=== PATIENT | male | born 1955 | race Two or more races ===

== ENCOUNTER 2019-01-24 17:54 | Emergency (ER) | payer MEDICARE, MEDICAID ==
[~2019-01-24] VITALS: Ht 165.1 cm; Wt 63.6 kg
[~2019-01-24 17:54] MED LIST: CLON-527 PO; CYCL-394 PO; FLO0.4C PO; HYDR1TAB PO; HYDR25SU32 RC; HYDR2TAB28 PO
[2019-01-24] MEDS ORDERED: acetaminophen 325mg tablet PO STA (18:05)
[2019-01-24] MEDS ORDERED: normal saline 1000ML IV soln IV ONE (18:05)
[2019-01-24] MEDS ORDERED: methylPREDNISolone sod succ 125mg/2ml vial IV ONE (18:10)
[2019-01-24] MEDS ORDERED: ipratropium/albuterol 3ml nebule NEB ONE (18:10)
--- NOTE | 2019-01-24 18:28 | NUR ---
pt arrived at change shift [place] GALVEZ at bedside ordered septic work up started iv 20 guage maribell labs RN Ana to assume care of patient. Chest xray complete
--- NOTE | 2019-01-24 18:32 | NUR ---
Pt refused Tylenol stating his told him not to take Tylenol. Pt could not say why MD gave him these instruction. Pt stated he took ASA before coming to the ER for a headach. Temp at this time is 98.0
[2019-01-24] MEDS ORDERED: methylPREDNISolone sod succ 125mg/2ml vial ONE (18:40)
[2019-01-24] MEDS ORDERED: famotidine/PF 10 mg/ml inj IV ONE (18:40)
[2019-01-24 18:41] LABS: BASOPHILS % (AUTO) 0.5 % (0-1); EOSINOPHILS % (AUTO) 0.4 % (0-6); HEMATOCRIT 41.7 % (42.0-52.0); HEMOGLOBIN 14.6 g/dl (14.0-17.9); LYMPHOCYTES # (AUTO) 0.4 X10'3 (1.1-4.8); LYMPHOCYTES % (AUTO) 6.8 % (21-51); MEAN CORPUSCULAR HGB CONC 34.9 g/dL (33.0-36.5); MEAN CORPUSCULAR VOLUME 88.8 FL (78-98); MEAN PLATELET VOLUME 8.3 FL (7.4-10.4); MONOCYTES # (AUTO) 0.4 X10'3 (0-0.9); MONOCYTES % (AUTO) 6.2 % (2-12); NEUTROPHILS # (AUTO) 5.5 X10'3 (1.8-7.7); NEUTROPHILS % (AUTO) 86.1 % (42-75); PLATELET COUNT 152 X10'3 (140-440); RED CELL DISTRIBUTION WIDTH 14.1 % (11.5-14.5); WHITE BLOOD COUNT 6.4 X10'3 (4.5-11.0)
[2019-01-24 18:56] LABS: INR 1.1 INR
[2019-01-24 18:57] LABS: ALANINE AMINOTRANSFERASE 18 U/L (12-78); ALBUMIN 3.7 G/DL (3.4-5.0); ALBUMIN/GLOBULIN RATIO 1.1 (1.1-1.5); ALKALINE PHOSPHATASE 105 IU/L (46-116); ANION GAP 8 (8-16); ASPARTATE AMINO TRANSFERASE 16 U/L (10-37); BILIRUBIN,TOTAL 1.1 MG/DL (0.1-1.0); BLOOD UREA NITROGEN 9 MG/DL (7-18); BUN/CREATININE RATIO 9.4 (5.4-32.0); CALCIUM 8.6 MG/DL (8.5-10.1); CHLORIDE 103 MMOL/L (99-107); CREATININE 0.96 MG/DL (0.60-1.10); GLUCOSE 101 MG/DL (70-104); POTASSIUM 3.5 MMOL/L (3.5-5.1); SODIUM 137 MMOL/L (135-145); TOTAL CARBON DIOXIDE 25.7 MMOL/L (24-32); TOTAL PROTEIN 7.2 G/DL (6.4-8.2); eGFR 79 ML/MIN
[2019-01-24] MEDS ORDERED: PRED20TA PO (19:41)
[2019-01-24] MEDS ORDERED: GUAI120015 PO (19:41)
[2019-01-24] MEDS ORDERED: ALBU6.7H INH (19:41)
[2019-01-24] MEDS ORDERED: AMOX-419 PO (19:41)
[2019-01-24 20:13] LABS: CLARITY,URINE CLEAR (Clear); COLOR,URINE YELLOW (Yellow); GLUCOSE, URINE NEGATIVE (Neg); KETONES,URINE NEGATIVE (Neg); LEUKOCYTE ESTERASE ,URINE NEGATIVE (Neg); NITRITES, URINE NEGATIVE (Neg); OCCULT BLOOD,URINE NEGATIVE (Neg); PROTEIN,URINE NEGATIVE (Neg); UROBILINOGEN,URINE 0.2 E.U/dL (0.2-1.0)
[2019-01-24 20:17] LABS: UA COLLECTION TYPE VOIDED
[2019-01-24 20:19] VITALS: BP 149/75
[2019-01-24 20:30] LABS: URINE AMPHETAMINE SCREEN NEGATIVE (Neg); URINE BARBITUATE SCREEN NEGATIVE (Neg); URINE BENZODIAZEPINES SCREEN NEGATIVE (Neg); URINE CANNABINOID SCREEN POSITIVE (Neg); URINE COCAINE SCREEN NEGATIVE (Neg); URINE METHADONE SCREEN NEGATIVE (Neg); URINE OPIATE SCREEN POSITIVE (Neg); URINE PHENCYCLIDINE SCREEN NEGATIVE (Neg)
[2019-01-27] MEDS ORDERED: OMEP10CA4 PO (10:06)
[2019-01-27] MEDS ORDERED: CLON-371 PO (10:06)
[2019-01-27] MEDS ORDERED: HYDR-4353 PO (10:06)
[2019-01-27] MEDS ORDERED: OXYC20TA71 PO (10:06)
[2019-01-27] MEDS ORDERED: PREG150C PO (10:06)
[2019-01-27] MEDS ORDERED: DEXT15SY8 (10:07)
== END 2019-01-24 20:38 | disposition home or self-care (01) ==
LOC: ER 17:55
DX: J18.1 Lobar pneumonia, unspecified organism (principal); J44.1 Chronic obstructive pulmonary disease with (acute) exacerbation; K21.9 Gastro-esophageal reflux disease without esophagitis; G89.29 Other chronic pain; F12.90 Cannabis use, unspecified, uncomplicated; R79.1 Abnormal coagulation profile; Z85.46 Personal history of malignant neoplasm of prostate; Z88.5 Allergy status to narcotic agent; Z79.899 Other long term (current) drug therapy
CPT/HCPCS: 36415; 71045; 80053; 80305; 81003; 83605; 84145; 85025; 85610; 87040; 93005; 94640; 94760; 96374; 96375; 99284; J2930; J3490; J7030

== ENCOUNTER 2019-02-12 17:02 | Emergency (ER) | payer MEDICARE, MEDICAID ==
[~2019-02-12] VITALS: Ht 165.1 cm; Wt 202.3 kg
[~2019-02-12 17:02] MED LIST changes: +ALBU6.7H INH; +CLON-371 PO; -CLON-527 PO; -CYCL-394 PO; +GUAI120015 PO; +HYDR-4353 PO; -HYDR1TAB PO; -HYDR25SU32 RC; -HYDR2TAB28 PO; +LEVO500T89 PO; +OMEP10CA5 PO; +OXYC20TA71 PO; +PRED10TA23 PO; +PREG150C PO
[2019-02-12 17:05] VITALS: BP 136/79
[2019-02-12] MEDS ORDERED: CEPH-572 PO (18:16)
== END 2019-02-12 18:56 | disposition home or self-care (01) ==
LOC: ER 17:03
DX: L03.012 Cellulitis of left finger (principal); J44.9 Chronic obstructive pulmonary disease, unspecified; K21.9 Gastro-esophageal reflux disease without esophagitis; G89.29 Other chronic pain; F12.90 Cannabis use, unspecified, uncomplicated; Z88.5 Allergy status to narcotic agent; Z79.899 Other long term (current) drug therapy
CPT/HCPCS: 99284

== ENCOUNTER 2019-09-29 13:53 | Emergency (ER) | payer MEDICARE, MEDICAID ==
[~2019-09-29] VITALS: Ht 165.1 cm; Wt 65.0 kg
[~2019-09-29 13:53] MED LIST changes: -ALBU6.7H INH; +ALBU6.7H9 INH; -LEVO500T89 PO; -PRED10TA23 PO
[2019-09-29 14:09] VITALS: BP 152/81
[2019-09-29] MEDS ORDERED: LIDOcaine 5% patch TP STA (14:29)
== END 2019-09-29 15:36 | disposition home or self-care (01) ==
LOC: ER 13:55
DX: S22.31XA Fracture of one rib, right side, initial encounter for closed fracture (principal); J44.9 Chronic obstructive pulmonary disease, unspecified; K21.9 Gastro-esophageal reflux disease without esophagitis; G89.29 Other chronic pain; F12.90 Cannabis use, unspecified, uncomplicated; Z88.5 Allergy status to narcotic agent; Z79.899 Other long term (current) drug therapy; W10.9XXA Fall (on) (from) unspecified stairs and steps, initial encounter; Y93.89 Activity, other specified; Y92.89 Other specified places as the place of occurrence of the external cause; Y99.9 Unspecified external cause status
CPT/HCPCS: 71101; 99284

== ENCOUNTER 2021-08-31 11:54 | Emergency (ER) | payer MEDICARE, MEDICAID ==
[~2021-08-31] VITALS: Ht 165.1 cm; Wt 65.9 kg
[~2021-08-31 11:54] MED LIST changes: -OXYC20TA71 PO; +OXYC20TA78 PO
[2021-08-31 13:05] LABS: BASOPHILS % (AUTO) 0.8 % (0-1); EOSINOPHILS # (AUTO) 0.1 X10'3 (0-0.9); EOSINOPHILS % (AUTO) 2.3 % (0-6); HEMATOCRIT 40.1 % (42.0-52.0); HEMOGLOBIN 13.7 g/dl (14.0-17.9); LYMPHOCYTES # (AUTO) 1.4 X10'3 (1.1-4.8); MEAN CORPUSCULAR HEMOGLOBIN 30.4 PG (27.0-31.0); MEAN CORPUSCULAR HGB CONC 34.1 g/dL (33.0-36.5); MONOCYTES # (AUTO) 0.4 X10'3 (0-0.9); MONOCYTES % (AUTO) 8.2 % (2-12); NEUTROPHILS # (AUTO) 2.9 X10'3 (1.8-7.7); NEUTROPHILS % (AUTO) 59.7 % (42-75); PLATELET COUNT 174 X10'3 (140-440); RED BLOOD COUNT 4.51 X10'6 (4.70-6.10); RED CELL DISTRIBUTION WIDTH 13.6 % (11.5-14.5); WHITE BLOOD COUNT 4.8 X10'3 (4.5-11.0)
[2021-08-31] MEDS ORDERED: HYDROcodone/acetaminophen 5mg/325mg tablet PO ONE (13:15)
[2021-08-31 13:16] LABS: ALANINE AMINOTRANSFERASE 15 U/L (12-78); ALBUMIN 3.7 G/DL (3.4-5.0); ALBUMIN/GLOBULIN RATIO 1.2 (1.1-1.5); ALKALINE PHOSPHATASE 81 IU/L (46-116); ANION GAP 12 (8-16); ASPARTATE AMINO TRANSFERASE 4 U/L (10-37); BILIRUBIN,TOTAL 0.3 MG/DL (0.1-1.0); BLOOD UREA NITROGEN 21 MG/DL (7-18); BUN/CREATININE RATIO 19.8 (5.4-32.0); CHLORIDE 105 MMOL/L (99-107); CREATININE 1.06 MG/DL (0.60-1.10); GLUCOSE 103 MG/DL (70-104); POTASSIUM 4.2 MMOL/L (3.5-5.1); SODIUM 142 MMOL/L (135-145); TOTAL CARBON DIOXIDE 25.4 MMOL/L (24-32); TOTAL PROTEIN 6.7 G/DL (6.4-8.2); eGFR 70 ML/MIN
[2021-08-31] MEDS ORDERED: aspirin 325mg tablet PO ONE (13:25)
[2021-08-31] MEDS ORDERED: iohexol 350MG/ML 100ml bottle IV ONE (15:54)
--- NOTE | 2021-08-31 16:13 | NUR ---
TO CT SCAN .
--- NOTE | 2021-08-31 18:41 | NUR ---
assumed care of patient. blanket provided. arelietn states pain is within acceptable limits - awaiting second troponin and will DC per MD order when ready
[2021-08-31 19:18] VITALS: BP 120/70
== END 2021-08-31 19:29 | disposition home or self-care (01) ==
LOC: ER 11:55
DX: R07.2 Precordial pain (principal); R20.2 Paresthesia of skin; J44.9 Chronic obstructive pulmonary disease, unspecified; K21.9 Gastro-esophageal reflux disease without esophagitis; G89.29 Other chronic pain; N40.0 Benign prostatic hyperplasia without lower urinary tract symptoms; F12.90 Cannabis use, unspecified, uncomplicated; Z87.01 Personal history of pneumonia (recurrent); Z79.899 Other long term (current) drug therapy; Z88.5 Allergy status to narcotic agent
CPT/HCPCS: 36415; 71045; 71275; 74174; 80053; 83880; 84484; 85025; 93005; 99285; Q9967

== ENCOUNTER 2022-01-21 14:13 | Emergency (ER) | payer MEDICARE, MEDICAID ==
[~2022-01-21] VITALS: Ht 165.1 cm; Wt 65.9 kg
[2022-01-21] MEDS ORDERED: ONDA4TAB12 PO (20:12)
[2022-01-21 20:33] VITALS: BP 130/74
--- NOTE | 2022-01-21 20:33 | NUR ---
pt able to tolerate PO fluids.
== END 2022-01-21 20:30 | disposition home or self-care (01) ==
LOC: ER 14:14
DX: B34.9 Viral infection, unspecified (principal); Z20.822 Contact with and (suspected) exposure to COVID-19; R10.84 Generalized abdominal pain; J44.9 Chronic obstructive pulmonary disease, unspecified; K21.9 Gastro-esophageal reflux disease without esophagitis; G89.29 Other chronic pain; F12.90 Cannabis use, unspecified, uncomplicated; Z87.01 Personal history of pneumonia (recurrent); Z88.6 Allergy status to analgesic agent; Z79.899 Other long term (current) drug therapy
CPT/HCPCS: 87502; 87503; 87635; 99284; C9803

== ENCOUNTER 2022-05-14 08:57 | Emergency (ER) | payer MEDICARE, MEDICAID ==
[~2022-05-14] VITALS: Ht 165.1 cm; Wt 68.0 kg
[~2022-05-14 08:57] MED LIST changes: -ALBU6.7H9 INH; +ALBU8.5H17 INH; +DEXA6TAB PO; -GUAI120015 PO; -OMEP10CA5 PO; +OMEP20CA16 PO; +PREG100C55 PO; -PREG150C PO; +TIZA-205 PO
[2022-05-14 10:06] LABS: BASOPHILS % (AUTO) 0.6 % (0-1); EOSINOPHILS # (AUTO) 0.1 X10'3 (0-0.9); EOSINOPHILS % (AUTO) 2.3 % (0-6); HEMOGLOBIN 14.2 g/dl (14.0-17.9); LYMPHOCYTES # (AUTO) 1.4 X10'3 (1.1-4.8); MEAN CORPUSCULAR HEMOGLOBIN 29.6 PG (27.0-31.0); MEAN CORPUSCULAR HGB CONC 33.8 g/dL (33.0-36.5); MEAN CORPUSCULAR VOLUME 87.5 FL (78-98); MEAN PLATELET VOLUME 8.8 FL (7.4-10.4); MONOCYTES # (AUTO) 0.5 X10'3 (0-0.9); NEUTROPHILS # (AUTO) 3.4 X10'3 (1.8-7.7); NEUTROPHILS % (AUTO) 62.1 % (42-75); PLATELET COUNT 183 X10'3 (140-440); RED CELL DISTRIBUTION WIDTH 15.5 % (11.5-14.5); WHITE BLOOD COUNT 5.4 X10'3 (4.5-11.0)
[2022-05-14 10:19] LABS: ALANINE AMINOTRANSFERASE 21 U/L (12-78); ALBUMIN 4.2 G/DL (3.4-5.0); ALBUMIN/GLOBULIN RATIO 1.4 (1.1-1.5); ALKALINE PHOSPHATASE 88 IU/L (46-116); ANION GAP 11 (8-16); ASPARTATE AMINO TRANSFERASE 19 U/L (10-37); BILIRUBIN,TOTAL 0.8 MG/DL (0.1-1.0); BLOOD UREA NITROGEN 15 MG/DL (7-18); BUN/CREATININE RATIO 16.1 (5.4-32.0); CALCIUM 9.2 MG/DL (8.5-10.1); CHLORIDE 107 MMOL/L (99-107); CREATININE 0.93 MG/DL (0.60-1.10); GLUCOSE 97 MG/DL (70-104); POTASSIUM 4.4 MMOL/L (3.5-5.1); SODIUM 143 MMOL/L (135-145); TOTAL PROTEIN 7.2 G/DL (6.4-8.2); eGFR 81 ML/MIN
[2022-05-14 10:21] LABS: LIPASE 84 U/L (73-393)
[2022-05-14 10:36] LABS: CLARITY,URINE CLEAR (Clear); COLOR,URINE YELLOW (Yellow); GLUCOSE, URINE NEGATIVE (Neg); KETONES,URINE NEGATIVE (Neg); LEUKOCYTE ESTERASE ,URINE NEGATIVE (Neg); NITRITES, URINE NEGATIVE (Neg); OCCULT BLOOD,URINE NEGATIVE (Neg); PROTEIN,URINE NEGATIVE (Neg)
[2022-05-14 10:37] LABS: UA COLLECTION TYPE CLN CATCH MIDSTREAM
[2022-05-14] MEDS ORDERED: proCHLORperazine 10mg tablet PO ONE (10:55)
[2022-05-14] MEDS ORDERED: BUDE10.26 INH (11:05)
[2022-05-14] MEDS ORDERED: PROC-8 PO (11:05)
[2022-05-14] MEDS ORDERED: ALBU18HF2 INH (11:05)
[2022-05-14 11:18] VITALS: BP 130/74
== END 2022-05-14 11:25 | disposition home or self-care (01) ==
LOC: ER 08:57
DX: G43.909 Migraine, unspecified, not intractable, without status migrainosus (principal); Z20.822 Contact with and (suspected) exposure to COVID-19; U09.9 Post COVID-19 condition, unspecified; J44.9 Chronic obstructive pulmonary disease, unspecified; K21.9 Gastro-esophageal reflux disease without esophagitis; G89.29 Other chronic pain; M54.9 Dorsalgia, unspecified; F41.9 Anxiety disorder, unspecified; F12.10 Cannabis abuse, uncomplicated; Z88.5 Allergy status to narcotic agent; Z79.899 Other long term (current) drug therapy; Z79.2 Long term (current) use of antibiotics; Z79.1 Long term (current) use of non-steroidal anti-inflammatories (NSAID)
CPT/HCPCS: 36415; 71045; 80053; 81003; 83690; 84484; 85025; 87635; 93005; 99285; C9803; Q0164

== ENCOUNTER 2023-05-26 05:47 | Emergency (ER) | payer MEDICARE, MEDICAID ==
[~2023-05-26] VITALS: Ht 165.1 cm; Wt 6.6 kg
[~2023-05-26 05:47] MED LIST changes: +ALBU18HF2 INH; +BUDE10.26 INH; -OXYC20TA78 PO; +OXYC20TA89 PO; -PREG100C55 PO; +PREG100C56 PO; +PROC-8 PO
[2023-05-26 05:53] VITALS: BP 137/85; PULSE 68; RESP 12; TEMP 98.3; O2SAT 96
[2023-05-26] MEDS ORDERED: ONDA4TAB12 PO (06:57)
[2023-05-26] MEDS ORDERED: ondansetron 4mg rapidly disintigrating tab PO ONE (07:00)
== END 2023-05-26 07:34 | disposition home or self-care (01) ==
LOC: ER 05:48
DX: B34.9 Viral infection, unspecified (principal); Z20.822 Contact with and (suspected) exposure to COVID-19; K21.9 Gastro-esophageal reflux disease without esophagitis; J44.9 Chronic obstructive pulmonary disease, unspecified; G89.29 Other chronic pain; M54.9 Dorsalgia, unspecified; F41.9 Anxiety disorder, unspecified; Z88.5 Allergy status to narcotic agent
CPT/HCPCS: 36415; 87502; 87503; 87811; 99283

== ENCOUNTER 2024-03-04 14:47 | Emergency (ER) | payer MEDICARE, MEDICAID ==
[~2024-03-04] VITALS: Ht 165.1 cm; Wt 61.0 kg
[~2024-03-04 14:47] MED LIST changes: +ONDA4TAB12 PO
[2024-03-04 15:11] VITALS: BP 128/67; PULSE 72; TEMP 98.5; O2SAT 95
[2024-03-04 15:13] VITALS: RESP 14
[2024-03-04 15:41] LABS: BILIRUBIN,URINE NEGATIVE (Neg); CLARITY,URINE CLEAR (Clear); COLOR,URINE YELLOW (Yellow); GLUCOSE, URINE NEGATIVE (Neg); KETONES,URINE NEGATIVE (Neg); LEUKOCYTE ESTERASE ,URINE NEGATIVE (Neg); NITRITES, URINE NEGATIVE (Neg); OCCULT BLOOD,URINE NEGATIVE (Neg); PROTEIN,URINE NEGATIVE (Neg); UA COLLECTION TYPE CLN CATCH MIDSTREAM
[2024-03-04] MEDS: ondansetron 4mg rapidly disintigrating tab PO ONE (15:59)
[2024-03-04 16:12] LABS: BASOPHILS # (AUTO) 0.1 X10'3 (0-0.2); BASOPHILS % (AUTO) 0.9 % (0-1); EOSINOPHILS # (AUTO) 0.2 X10'3 (0-0.9); HEMATOCRIT 40.8 % (42.0-52.0); HEMOGLOBIN 13.6 g/dl (14.0-17.9); LYMPHOCYTES # (AUTO) 1.3 X10'3 (1.1-4.8); MEAN CORPUSCULAR HEMOGLOBIN 30.7 PG (27.0-31.0); MEAN CORPUSCULAR HGB CONC 33.4 g/dL (33.0-36.5); MEAN CORPUSCULAR VOLUME 92.1 FL (78-98); MEAN PLATELET VOLUME 7.6 FL (7.4-10.4); MONOCYTES # (AUTO) 0.3 X10'3 (0-0.9); MONOCYTES % (AUTO) 5.4 % (2-12); NEUTROPHILS # (AUTO) 4.2 X10'3 (1.8-7.7); NEUTROPHILS % (AUTO) 69.7 % (42-75); PLATELET COUNT 309 X10'3 (140-440); RED BLOOD COUNT 4.43 X10'6 (4.70-6.10); RED CELL DISTRIBUTION WIDTH 14.4 % (11.5-14.5)
[2024-03-04 16:28] LABS: ALANINE AMINOTRANSFERASE 31 U/L (12-78); ALBUMIN 3.3 G/DL (3.4-5.0); ALBUMIN/GLOBULIN RATIO 0.9 (1.1-1.5); ALKALINE PHOSPHATASE 90 IU/L (46-116); ANION GAP 6 (8-16); ASPARTATE AMINO TRANSFERASE 17 U/L (10-37); BILIRUBIN,TOTAL 0.5 MG/DL (0.1-1.0); BLOOD UREA NITROGEN 21 MG/DL (7-18); BUN/CREATININE RATIO 21.6 (10.0-20.0); CALCIUM 8.9 MG/DL (8.5-10.1); CHLORIDE 106 MMOL/L (99-107); CREATININE 0.97 MG/DL (0.60-1.10); GLUCOSE 165 MG/DL (70-104); LIPASE 27 U/L (16-77); POTASSIUM 3.9 MMOL/L (3.5-5.1); SODIUM 140 MMOL/L (135-145); TOTAL CARBON DIOXIDE 27.7 MMOL/L (24-32); eCRCL 62 ML/MIN; eGFR 77 ML/MIN
== END 2024-03-04 16:51 | disposition home or self-care (01) ==
LOC: ER 14:47
DX: M54.6 Pain in thoracic spine (principal); J44.9 Chronic obstructive pulmonary disease, unspecified; K21.9 Gastro-esophageal reflux disease without esophagitis; F12.90 Cannabis use, unspecified, uncomplicated; Z88.5 Allergy status to narcotic agent; Z79.899 Other long term (current) drug therapy
CPT/HCPCS: 36415; 74176; 80053; 81003; 83690; 85025; 99284

== ENCOUNTER 2024-05-13 13:38 | Emergency (ER) | payer MEDICARE, MEDICAID ==
[~2024-05-13] VITALS: Ht 165.1 cm; Wt 61.5 kg
[~2024-05-13 13:38] MED LIST changes: +ONDA-243 PO; -ONDA4TAB12 PO
[2024-05-13] MEDS ORDERED: AZIT250T PO (16:25)
[2024-05-13] MEDS ORDERED: PRED20TA PO (16:25)
[2024-05-13 16:40] VITALS: BP 137/83; PULSE 61; RESP 17; TEMP 99.4; O2SAT 95
== END 2024-05-13 16:42 | disposition home or self-care (01) ==
LOC: ER 13:38
DX: U07.1 COVID-19 (principal); J44.9 Chronic obstructive pulmonary disease, unspecified; K21.9 Gastro-esophageal reflux disease without esophagitis; G89.29 Other chronic pain; M54.9 Dorsalgia, unspecified; F41.9 Anxiety disorder, unspecified; F12.90 Cannabis use, unspecified, uncomplicated; Z88.8 Allergy status to other drugs, medicaments and biological substances; Z79.899 Other long term (current) drug therapy; Z79.51 Long term (current) use of inhaled steroids; Z79.891 Long term (current) use of opiate analgesic; Z98.890 Other specified postprocedural states
CPT/HCPCS: 36415; 71045; 87811; 99284

== ENCOUNTER 2025-06-23 15:34 | Inpatient (IN) | payer MEDICARE, MEDICAID ==
[~2025-06-23] VITALS: Ht 172.7 cm; Wt 63.0 kg
[~2025-06-23 15:34] MED LIST changes: +AZIT250T PO; -FLO0.4C PO; +TAMS-55 PO
--- NOTE | 2025-06-23 15:59 | ELECTROCARDIOGRAPH REPORT ---
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 Kane Trinidad Measurements Intervals [place] Rate: 89 P: 58 PA: 158 QRS: -19 QRSD: 98 T: 20 QT: 366 QTc: 446 Interpretive Statements Age not entered, assumed to be 49 years old for purpose of ECG interpretation Sinus rhythm Borderline left axis deviation Low voltage, extremity leads Abnormal R-wave progression, late transition Baseline wander in lead(s) II,III,aVL,aVF,V2,V3,V4,V5 Electronically Signed On 06-29-2025 7:51:[address] Kane Trinidad Please click the below link to view image of tracing.
[2025-06-23 16:01] LABS: MEAN PLATELET VOLUME 7.9 FL (7.4-10.4); RED CELL DISTRIBUTION WIDTH 14.7 % (11.5-14.5)
[2025-06-23 16:23] LABS: CREATININE 0.96 MG/DL (0.60-1.10); PRO BRAIN NATRIURETIC PEPTIDE 32 PG/ML (0-125); TOTAL CARBON DIOXIDE 28.5 MMOL/L (24-32); eCRCL 64 ML/MIN; eGFR 77 ML/MIN
--- NOTE | 2025-06-23 16:52 | RADIOLOGY REPORT ---
CHEST RADIOGRAPH Indication: CP Technique: DI CHEST,SINGLE VIEW Comparison: None FINDINGS: The cardiac silhouette is unremarkable. The lungs demonstrate perihilar and bibasilar airspace opacities. The pulmonary vasculature is prominent. Small left pleural effusion. There is no pneumothorax. IMPRESSION: As above
--- NOTE | 2025-06-23 17:14 | Physician Documentation ---
History of Present Illness ~ Chief Complaint: Syncope Stated Complaint: FALL Time Seen by MD: 15:49 Primary Medical Doctor: Lenin John Source: patient Exam Limitations: no limitations HPI Mr. Zuniga is a 69 y/o male with PMHx significant for COPD and Chronic Pain Syndrome with Neuropathy who presents for evaluation following a syncopal event. He states that this morning at around 0600, he was making his coffee and when he turned to get the sweetner, he passed out. He also reports that he hit his head during the fall. No report of lightheadedness or dizziness prior to the fall. No chest pain/pressure/palpitations during the fall. No SOB or difficulty breathing. No focal weakness. No numbness/tingling/weakness. No loss of bowel or bladder function. No known sick contacts. No recent antibiotic exposure. Medication Reconciliation Allergies: Coded Allergies: morphine (Verified Allergy, Unknown, "HIGH BLOOD PRESSUR, MIGRAINE" PER PT, 05/13/24) Scheduled Albuterol Sulfate (Ventolin Hfa), 2 PUFFS INH Q4HPRN Azithromycin (Zithromax), 1 TAB PO UD Budesonide/Formoterol Fumarate (Budesonide-Formoterol 160-4.5), 1 PUFF INH BID Clonazepam (Clonazepam), 1 TABLET PO HS, (Reported) Dexamethasone (Dexamethasone), 1 TAB PO DAILY Hydrocodone Bit/Acetaminophen ([place] 10-325 Tablet), 1 TAB PO BID PRN PAIN, (Reported) Omeprazole (Omeprazole), 1 CAP PO DAILY, (Reported) Oxycodone HCl (Oxycodone HCl ER), 1 TAB PO Q12H, (Reported) Pregabalin (Pregabalin), 1 CAP PO BID, (Reported) Tamsulosin Hcl* (Flomax*), 2 CAP PO HS, (Reported) Scheduled PRN Albuterol Sulfate (Proair Hfa), 2 PUFFS INH Q6H PRN for wheezing, (Reported) Albuterol Sulfate (Proair Hfa), 2 PUFFS INH Q4HPRN PRN for wheezing ONDANSETRON ODT 4mg tablet (Ondansetron Odt), 1 TABLET PO Q8H PRN for nausea/vomiting Prochlorperazine Maleate (Compazine), 1 TAB PO Q8H PRN for HEADACHE OR NAUSEA Tizanidine Hcl (Zanaflex), 1 TAB PO TID PRN for muscle spasm, (Reported) Past Medical History Past Medical History: COPD, Pneumonia, GERD, BPH, Chronic Back Pain, Anxiety Past Surgical History: no surgical history Other Past Surgical History: hernia Patient History: Breast Ca FH: Alzheimer's disease FH: breast cancer Lyme Alcohol Use: None Drug Use: marijuana Lives In: Home Occupation: disabled Review of Systems All Other Systems at this time: Reviewed and Negative Physical Exam Vital Signs: RN Vital Signs have been reviewed: Yes, Temperature: 99.6, Source: Oral, Heart Rate: 96, Respiratory Rate: 16, BP: 119/81, Pulse Oximetry: 95, Weight: 63.000 Oxygen Flow Rate: 0 Physical Exam GEN: Alert and oriented and in NAD. HEENT: NC/AT. PERRLA. No scleral icterus. MMM. No oral lesions. NECK: Supple. No JVD. CHEST: RRR. No M/G/T. LUNGS: CTA B. No W/R/R. ABD: Soft. NTND. + BS. No rebounding or guarding. BACK: No CVA TTP. EXT: No c/c/e. NEURO: Alert and oriented x 4. Cooperative. Sensorimotor intact x 4 extremities. General Appearance: alert, WD/WN, no apparent distress Progress Results/Orders Reviewed/noted all lab results: Yes Results/Orders Orders - EMILIE HERRERA MD Chest,Single View (06/23/25 15:40) Monitor (06/23/25 15:40) Saline Lock (06/23/25 15:40) Oxygen (06/23/25 15:40) Hs Troponin I W Calculations (06/23/25 17:40) Hs Troponin I W Calculations (06/23/25 18:40) Ct Head (06/23/25 15:50) Completed Orders - EMILIE HERRERA MD Chest,Single View (06/23/25 15:40) Cbc/Diff (06/23/25 15:40) BMP (06/23/25 15:40) PBNP (06/23/25 15:40) Electrocardiogram (06/23/25 15:40) Hs Troponin I W Calculations (06/23/25 15:40) Ct Head (06/23/25 15:50) Vital Signs 06/23/25 15:38 Temp 99.6 Pulse 96 Resp 16 B/P (MAP) 119/81 Pulse Ox 95 O2 Flow Rate 0 Laboratory Tests Test 06/23/25 15:53 White Blood Count 9.0 Red Blood Count 4.65 L Hemoglobin 14.1 Hematocrit 41.1 L Mean Corpuscular Volume 88.4 Mean Corpuscular Hemoglobin 30.3 Mean Corpuscular Hemoglobin Concent 34.2 Red Cell Distribution Width 14.7 H Platelet Count 258 Mean Platelet Volume 7.9 Neutrophils (%) (Auto) 74.4 Lymphocytes (%) (Auto) 13.6 L Monocytes (%) (Auto) 10.5 Eosinophils (%) (Auto) 0.9 Basophils (%) (Auto) 0.6 Neutrophils # (Auto) 6.7 Lymphocytes # (Auto) 1.2 Monocytes # (Auto) 0.9 Eosinophils # (Auto) 0.1 Basophils # (Auto) 0.1 CBC Comment Sodium Level 136 Potassium Level 4.0 Chloride Level 101 Carbon Dioxide Level 28.5 Anion Gap 7 L Blood Urea Nitrogen 12 Creatinine 0.96 Estimated GFR/1.73 m2 77 BUN/Creatinine Ratio 12.5 Glucose Level 111 H Calcium Level 9.1 Troponin I High Sensitivity < 4 L Troponin I High Sens Percent Delta Troponin I Hi Sens Absolute Change Pro-B-Type Natriuretic Peptide 32 Albumin 3.6 Chemistry Comments EKG/XRAY/CT/US/VASC/MRI EKG : Intepreting Monitor?: Yes EKG: NSR EKG Blocks: none [place]: normal Hypertrophy: none Chest X-Ray : Interpreted By: self Views: 1 VIEW Lungs: normal Mediastinum: normal Ribs/Bones: normal Abdomen: normal Impression: no acute disease Medical Decision Making Additional information obtaine: N/A Findings While here in the ED, he remained hemodynamically normal with ABC's intact and in NAD. He is afebrile and nontoxic. Neuro exam nonfocal. No meningismus on exam. I reviewed and interpreted his EKG and it shows NSR with a rate of 89 and is without signs suggestive of acute myocardial injury or ischemia. TnI normal. Lytes are unremarkable. He is without a significant leukocytosis or left shift. Neutrophil predominance. No new oxygen requirement. I reviewed his CXR and it is without radiographic evidence of an acute cardiopulmonary process. Due to the report of a head strike during the fall, a NCCT brain was obtained to further evaluate. CT is without signs of an acute bleed, space-occupying lesions, edema, or large territorial infarct. He has not been seen by a physician in quite some time and would benefit from admission for further work- up of his acute syncopal episode. Differential Dx:Considerations: Include: anemia, CVA, cerebral occlusion, cerebral thrombosis, dehydration, dysrhythmia, electrolyte disorder, encephalopathy, hypoglycemia, hypovolemia, TIA Departure Disposition: ADMITTED INPATIENT Admitted to Inpatient Unit: yes, to hospitalist Admission Level of Care: Med/Surg with Tele Impression: Primary Impression: Syncope Condition: Stable Discharge Instructions: Syncope, Adult Referrals: NO PRIMARY CARE PROVIDER (PCP) Education Educated: Patient Educated regarding: diagnosis, treatment ACF Form Admit Criteria Met or Not Met: YES Signature Scribe Signature: N/A Attestation: N/A EMILIE HERRERA MD Jun 23, 2025 17:14
--- NOTE | 2025-06-23 17:18 | RADIOLOGY REPORT ---
Procedure: CT CT HEAD [facility] Study Date and Requested Time: 06/23/2025 04:25 PM History: Syncope Comparison: None Dose: CTDI: 52.51 mGy DLP: 945.09 mGycm Technique: Multiplanar images obtained through the brain without intravenous contrast. Findings: [id number] diffuse brain Atrophy. Mild chronic small vessel ischemic changes. No hemorrhages, masses, mass effect, midline shift, herniation or cytotoxic edema following a large vascular territory. No intra-axial or extra-axial fluid collections. No evidence of hydrocephalus. The basal cisterns are patent. Small lipomas over the left tentorium. The pituitary gland, sella and parasellar regions are unremarkable. The cerebellar tonsils are in normal position. The cerebellum is unremarkable. The orbits and globes are unremarkable. The paranasal sinuses and mastoids are clear. Nonspecific right posterior parietal and left occipital calvarium small lytic lesions measuring up to 4 mm. Metastasis is within the differential. Impression: No evidence of acute intracranial abnormality.
[2025-06-23] MEDS ORDERED: magnesium hydroxide 30ml (MOM) UD suspension PO PRN (17:40)
[2025-06-23] MEDS ORDERED: potassium Cl 20 mEq SR tablet PO PRN ×2 (17:40)
[2025-06-23] MEDS ORDERED: potassium Cl 40MEQ/1/2NS 520ml 520 ML IV PRN (17:40)
[2025-06-23] MEDS ORDERED: magnesium sulf-water 2g/50mL 50 ML IV PRN (17:40)
[2025-06-23] MEDS ORDERED: ondansetron 4mg rapidly disintigrating tab PO PRN (17:40)
[2025-06-23] MEDS ORDERED: magnesium sulf-water 4G/100mL 100 ML IV PRN (17:40)
[2025-06-23] MEDS ORDERED: magnesium Cl slow-release 64mg tablet PO PRN (17:40)
[2025-06-23] MEDS ORDERED: mag hydrox/Alum hydrox/simeth 30ml oral suspension PO PRN (17:40)
--- NOTE | 2025-06-23 17:55 | HISTORY AND PHYSICAL-Residence ---
History & Physical Providers to CC Resident Creating Document: TRIXIEWesleyKEEGAN, RES ~ History of Present Illness Primary Medical Doctor: Lenin John Reason for Admit\\Complaint: syncope History of Present Illness A 69 year old male patient with pmh of CBP and prostate cancer presented to the ED with chief complains of loss of consciousness. Patient stated that it started this morning,prior to losing consciousness prodrome of ear fullness,nausea,vomiting,palpiattions,chills and sweating. As per the patient he lost consciousness for 2 hours and later he experienced confusion for 1 hour. In addition,he also had a fall and hit his head at the posterior skull base. Patient also has h/o chronic cough ass with green sputum,1/2 cup associated with intermitternt fevers. Allergies: Coded Allergies: morphine (Verified Allergy, Unknown, "HIGH BLOOD PRESSUR, MIGRAINE" PER PT, 05/13/24) Home Medications Home Medications Active Zithromax (Azithromycin) 250 Mg Tablet 1 Tab PO UD 5 Days 2 the first day followed by 1 for days 2-5 Ondansetron Odt (Ondansetron HCl) 4 Mg Tab.rapdis 1 Tablet PO Q8H PRN Ventolin Hfa (Albuterol Sulfate) 18 Gm Hfa.aer.ad 2 Puffs INH Q4HPRN Compazine (Prochlorperazine Maleate) 10 Mg Tablet 1 Tab PO Q8H PRN Budesonide-Formoterol 160-4.5 (Budesonide/Formoterol Fumarate) 10.2 Gm Hfa.aer.ad 1 Puff INH BID Proair Hfa (Albuterol Sulfate) 1 Puff Inh 2 Puffs INH Q4HPRN PRN 21 Days Dexamethasone 6 Mg Tablet 1 Tab PO DAILY Reported Proair Hfa (Albuterol Sulfate) 1 Puff Inh 2 Puffs INH Q6H PRN Omeprazole 20 Mg Capsule.dr 1 Cap PO DAILY Zanaflex (Tizanidine Hcl) 4 Mg Tablet 1 Tab PO TID PRN Flomax* (Tamsulosin HCl) 0.4 Mg Cap.sr.24h 2 Cap PO HS Pregabalin 100 Mg Capsule 1 Cap PO BID Oxycodone HCl ER (Oxycodone HCl) 20 Mg Tab.er.12h 1 Tab PO Q12H 30 Days [place] 10-325 Tablet (Acetaminophen/Hydrocodone Bitart) 1 Each Tablet 1 Tab PO BID PRN PAIN 30 Days Clonazepam 1 Mg Tablet 1 Tablet PO HS Past Medical History Past Medical History Chronic back pain Prostate cancer Past Surgical History Surgical History Comment Carpal tunnel repair Hernia repair Family History Family History: Breast Ca FH: Alzheimer's disease FH: breast cancer Lyme Past Social History Social History Comment Patient lives in a trailer with his niece His primary care physician is Dr. John He smokes 2 cigarettes per day since 40 years He occasionally drinks alcohol He smokes marijuana He is able to ambulate without any assistance Occupation retired Smoking: Cigarettes Alcohol Use: None Drug Use: Marijuana Lives In: Home Occupation: disabled ROS All Other Systems: Reviewed and Negative ROS All negative except for pertinent positive symptoms Exam Vitals: Vital Signs Date Time Temp Pulse Resp B/P (MAP) Pulse Ox O2 Delivery O2 Flow Rate FiO2 06/23/25 15:38 99.6 96 16 119/81 95 0 General: GENERAL: Awake, alert, oriented x4 HEENT : Normocephalic, atraumatic, pupils equal and reactive to light, extraocular movements intact, no scleral icterus or conjunctival pallor, nasal mucosa is moist, oral mucosa moist, NECK: neck is supple, trachea midline, no lymphadenopathy, no thyromegaly, no JV distention,lipoma present posterioraly near left scapula RESPIRATORY: Chest expansion equal bilaterally,Bilateral crackles are heard , no wheezes, or rhonchi. No use of accessory muscles, no tenderness on palpation. CARDIOVASCULAR: S1 and S2 heard, no murmurs, no rubs, or gallops ABDOMEN: Soft, nontender, nondistended, bowel sounds present and normoactive. No organomegaly, no palpable mass, no rebound or guarding NEUROLOGICAL: Alert, oriented, normal memory, speech is normal Cranial nerves II-XII- intact Motor strength 5/5 Sensation-intact in all extremities Reflexes +2 and symmetrical Coordination is intact EXTREMITIES: No Edema, peripheral pulses felt, no deformities Psychiatric:Appropriate mood and affect,No hallucinations or suicidal ideation Diagnostic Data Last Recorded Lab Results: 06/23/25 1553 06/23/25 1553 Advance Care Planning Advanced Care plannin - 30 Minutes Additional Plan 69 years old male with past medical history of COPD, BPH, chronic back pain, anxiety he is currently evaluated for transient loss of consciousness Syncopal attack Associated with transient loss of consciousness Patients is currently hemodynamically stable. Head CT was negative for any acute abnormality Orthostatic vitals ordered,initiated on 75ml/hr OF Normal saline Ordered b/l vascular carotid doppler, Ordered Echocardiogram Bilateral community acquired pneumonia covering G+ve and G-ve and anerobic orgranism Chest x-ray reported : perihilar and bibasilar airspace opacities. The pulmonary vasculature is prominent Inflammatory markers negative Initated the patient on fluids Initaited ceftriaxone+azithromycin Continue Albuterol q2h prn,Duonebs q4h scheduled Continue Solumedrol 40mg IV bid Chronic back pain Continue home medications once med rec is done Prostate cancer BED BUGS infestation Benadryl 25mg po pnr Hydrocortsione 1% cream as needed Code status: DNR Diet: Regaular Diet DVT: SCDs Disposition: F/u with echo,carotid doppler Keegan Dunaway PGY-1 Date of Service: Jun 23, 2025 Billing Provider: SHITAL KEANE MD, SATISH, RES Jun 23, 2025 17:54
[2025-06-23 18:18] LABS: ETHANOL < 10 MG/DL (<10)
[2025-06-23] MEDS ORDERED: albuterol 2.5 MG/3 ML nebule NEB PRN (18:20)
[2025-06-23] MEDS: ipratropium/albuterol 3ml nebule NEB SCH (19:00)
[2025-06-23] MEDS: K and/or MAG REPLACEMENT MC SCH (19:01)
[2025-06-23] MEDS: docusate sod 100mg capsule PO SCH (19:02)
[2025-06-23 19:04] VITALS: PULSE 93; RESP 16; O2SAT 98
[2025-06-23] MEDS: hydrocortisone 1% OINTMENT 30gm tube TP SCH (19:10)
[2025-06-23 19:15] VITALS: PULSE 91; RESP 16
[2025-06-23] MEDS: CefTRIAXone/D5W-Rocephin 1gm 50 ML IV SCH (19:21)
[2025-06-23] MEDS: ondansetron/PF 4mg/2ml inj IV PRN (19:24)
[2025-06-23] MEDS: methylPREDNISolone sod succ/PF 40mg inj. IV SCH (19:24)
[2025-06-23] MEDS: azithromycin/NS 500mg/250ml 250 ML IV SCH (19:26)
[2025-06-23 19:38] LABS: LEUKOCYTE ESTERASE ,URINE NEGATIVE (Neg); NITRITES, URINE NEGATIVE (Neg); OCCULT BLOOD,URINE TRACE-INTACT (Neg)
[2025-06-23 19:44] LABS: UA COLLECTION TYPE NON-SPECIFIED
[2025-06-23 19:45] LABS: MUCUS STRANDS MODERATE /LPF (Neg); SQUAMOUS EPITHELIAL CELL,UR FEW /LPF (FEW)
[2025-06-23 20:00] VITALS: BP_SYST 126; BP_SYST 127; BP_SYST 138; BP_DIAS 79; BP_DIAS 84; BP_DIAS 87; PULSE 91; PULSE 94; PULSE 97; RESP 16; TEMP 98.5; O2SAT 96
[2025-06-23 20:01] LABS: URINE AMPHETAMINE SCREEN NEGATIVE (Neg); URINE BARBITUATE SCREEN NEGATIVE (Neg); URINE BENZODIAZEPINES SCREEN NEGATIVE (Neg); URINE CANNABINOID SCREEN POSITIVE (Neg); URINE COCAINE SCREEN NEGATIVE (Neg); URINE METHADONE SCREEN NEGATIVE (Neg); URINE OPIATE SCREEN POSITIVE (Neg); URINE PHENCYCLIDINE SCREEN NEGATIVE (Neg)
[2025-06-23] MEDS ORDERED: diphenhydrAMINE 2%/zinc acetate cream TP SCH (21:00)
[2025-06-23] MEDS: normal saline 1000ml 1,000 ML IV SCH (21:41)
[2025-06-23 22:00] VITALS: BP 109/78; PULSE 76; RESP 16; TEMP 98; O2SAT 94
[2025-06-24] VITALS (19 sets, daily range): BP systolic 91–127; BP diastolic 53–70; PULSE 70–108; RESP 16–20; TEMP 97.4–97.7; O2SAT 93–98
[2025-06-24 05:39] LABS: MEAN PLATELET VOLUME 8.6 FL (7.4-10.4); RED CELL DISTRIBUTION WIDTH 14.5 % (11.5-14.5)
[2025-06-24 06:04] LABS: CREATININE 1.17 MG/DL (0.60-1.10); TOTAL CARBON DIOXIDE 24.0 MMOL/L (24-32); eCRCL 52 ML/MIN; eGFR 62 ML/MIN
[2025-06-24] MEDS: ringers solution, lacted 1,000 ML IV ONE ×2 (12:05→15:23)
--- NOTE | 2025-06-24 13:06 | VASCULAR REPORT ---
US CAROTID DOPPLER CLINICAL INDICATION: Syncope TECHNIQUE: Multiple grayscale, color Doppler and spectral Doppler ultrasound images were obtained throughout both carotid systems. COMPARISON: None FINDINGS: RIGHT: CCA PSV: 101 cm/s ECA PSV: 111 cm/s ICA PSV: 72 cm/s ICA EDV: 18 cm/s ICA/CCA Ratio: 0.71 Vertebral artery: Patent, antegrade flow. Grayscale images demonstrate no significant plaque or visible stenosis. Spectral analysis demonstrates no hemodynamically significant CCA or ICA stenosis. LEFT: CCA PSV: 109 cm/s ECA PSV: 93 cm/s ICA PSV: 58 cm/s ICA EDV: 16 cm/s ICA/CCA Ratio: 0.62 Vertebral artery: Patent, antegrade flow. Grayscale images demonstrate mild calcified plaque in the common carotid artery extending into the carotid bifurcation and proximal internal carotid artery. no significant plaque or visible stenosis. Spectral analysis demonstrates no hemodynamically significant CCA or ICA stenosis. IMPRESSION: 1. No without evidence of hemodynamically significant CCA or ICA stenosis.
[2025-06-24] MEDS ORDERED: normal saline 500ml IV soln 500 ML IV ONE (14:50)
[2025-06-24] MEDS: FLU VACC TS2025-26(6MOS UP)/PF (FLULAVAL) 45 MCG/0.5 ML SYRINGE IMVAC ONE (15:24)
[2025-06-24] MEDS: ringers solution, lacted 1,000 ML IV SCH (16:50)
--- NOTE | 2025-06-24 17:02 | RADIOLOGY REPORT ---
History: PE, BOWEL ISCHAEMIA Comparison: DI CHEST,SINGLE VIEW on DOS: 06/23/25, DI CHEST,SINGLE VIEW on DOS: 05/13/24, CT CT ABDOMEN PELVIS on DOS: 03/04/24, CHEST,SINGLE VIEW on DOS: 05/14/22, CHEST,SINGLE VIEW on DOS: 03/30/22 TECHNIQUE: Using a slice CT scanner volumetric data acquisition of chest, abdomen and pelvis was obtained following intravenous administration of intravenous 100 ml contrast without any reported adverse effects. Axial images were reconstructed and additional sagittal and coronal images were reformatted. 3D/MIP images were performed and reviewed for reporting. Radiation Dose Information: CT Dose: CTDI volume is 11.2 mGy. Dose-length product is 1083 mGy*cm Findings: Vascular: No evidence of thoracic aortic aneurysm or dissection There is normal caliber of thoracic and abdominal aorta without evidence of aortic dissection, intramural hematoma or aneurysm. Visualized supra-aortic arteries are widely patent without a focal stenosis or aneurysm. The mesenteric, and bilateral renal, iliac and femoral arteries are widely patent without any focal stenosis or aneurysm. Patent SMA. Patent celiac artery. Patent KENIA. Chest: Pulmonary Arteries: There are no filling defects within main pulmonary arteries. There is normal dimensional of main PA. Lungs: There is no peripheral pulmonary infarction, consolidation, pleural effusion, or right heart strain. There is no pneumothorax or pneumomediastinum. Aorta: There is normal caliber of thoracic aorta without evidence of aortic dissection, intramural hematoma or aneurysm. Lymph Nodes: There is no significant intrathoracic or axillary lymphadenopathy on CT size criteria. Lower Neck: Visualized portions of the thyroid gland are unremarkable. Mediastinum: Heart size is normal. There is no pericardial effusion. Musculoskeletal: No aggressive focal bony lesions, acute fractures or dislocation. Chest wall: Unremarkable Abdomen and Pelvis: Liver: The liver is normal in size. No focal lesions. Normal hepatic vascular enhancement. Gallbladder and Biliary Tree: Unremarkable Spleen: Unremarkable Pancreas: The pancreas is normal in appearance without focal lesions or abnormal enhancement. Adrenal Glands: Unremarkable Kidneys: Kidneys demonstrate normal symmetric enhancement without focal lesions, calculi or hydronephrosis. Bladder: Unremarkable Bowel: The stomach is grossly normal in appearance. Small bowel and colon are normal in caliber and distribution. The appendix is not visualized; however, no secondary findings of acute appendicitis identified. Moderate colonic stool burden. Ascites: Absent Lymphadenopathy: No mesenteric, retroperitoneal or periportal lymphadenopathy. Abdominal Wall and Mesentery: Unremarkable. Vasculature: The visualized abdominal aorta is normal in size and caliber. Abdominal and pelvic vessels demonstrate normal enhancement. Pelvic Organs: Prostatomegaly measuring up to 4.7 cm in transverse dimension. Musculoskeletal: No aggressive focal bony lesions, acute fractures or dislocation. IMPRESSION: 1. No evidence of pulmonary embolism. 2. No evidence of acute mesenteric ischemia. 3. No acute findings identified.
[2025-06-24] MEDS: nicotine 14mg patch - 24hr TD SCH (17:29)
[2025-06-24] MEDS ORDERED: levetiracetam inj 750 MG in normal saline 100ml IV soln 100 ML IV SCH (18:45)
[2025-06-24] MEDS: levetiracetam inj 750 MG in normal saline 100ml IV soln 100 ML IV SCH (20:16)
--- NOTE | 2025-06-24 22:29 | PROGRESS NOTE- Residence ---
Progress Note - Resident Providers to CC Resident Creating Document: DIEGO SANTOS RES ~ Antibiotic Timeout Antibiotic Ordered?: Yes Subjective Patient was examined at the bedside in the morning he reports no symptoms, patient had elevated lactic acid the afternoon for that we have given IV fluids, and patient now mentioned he had history of Seizures but he is not currently taking any medication because he lost his neurologist. We started him on levetiracetam IV. Objective Vital Signs Date Time Temp Pulse Resp B/P (MAP) Pulse Ox O2 Delivery O2 Flow Rate FiO2 06/24/25 20:09 97 20 Room Air 0.0 06/24/25 20:00 111/61 (78) 109/68 (82) 125/58 (80) 06/24/25 19:58 96 21 06/24/25 18:00 97.7 Result Diagram: 06/24/2542706/24/25427 GENERAL: Awake, alert, oriented x4 HEENT : Normocephalic, atraumatic, pupils equal and reactive to light, extraocular movements intact, no scleral icterus or conjunctival pallor,, oral mucosa moist, NECK: neck is supple, trachea midline, no lymphadenopathy, no thyromegaly, no JV distention,lipoma present posterioraly near left scapula RESPIRATORY: Chest expansion equal bilaterally, bilateral decrease breath sounds , no wheezes, or rhonchi. No use of accessory muscles, no tenderness on palpation. CARDIOVASCULAR: S1 and S2 heard, no murmurs, no rubs, or gallops ABDOMEN: Soft, nontender, nondistended, bowel sounds present and normoactive. No organomegaly, no palpable mass, no rebound or guarding NEUROLOGICAL: Alert, oriented, normal memory, speech is normal Cranial nerves II-XII- intact Motor strength 5/5 Sensation-intact in all extremities Reflexes +2 and symmetrical Coordination is intact EXTREMITIES: No Edema, peripheral pulses felt, no deformities Psychiatric:Appropriate mood and affect,No hallucinations or suicidal ideation Coagulation Studies Laboratory Tests Test 06/24/25 15:14 D-Dimer 0.88 MG/L FEU (0-0.50) H D-Dimer Comment Advance Care Planning Advanced Care plannin - 30 Minutes Plan Plan 69 years old male with past medical history of COPD, BPH, chronic back pain, anxiety he is currently evaluated for transient loss of consciousness Syncopal attack Associated with transient loss of consciousness Patients is currently hemodynamically stable. Head CT was negative for any acute abnormality CT chest/abdomen/pelvis-no evidence of pulmonary embolus, mesenteric ischemia Carotid ultrasound: No without evidence of hemodynamically significant CCA or ICA stenosis. Orthostatic vitals ordered,initiated on 75ml/hr OF Normal saline Follow up with echocardiogram Bilateral community acquired pneumonia covering G+ve and G-ve and anerobic orgranism Chest x-ray reported : perihilar and bibasilar airspace opacities. The pulmonary vasculature is prominent Inflammatory markers negative Continue the patient on fluids Continue ceftriaxone+azithromycin Continue Albuterol q2h prn,Duonebs q4h scheduled Continue Solumedrol 40mg IV bid Follow up with blood culture, sputum culture History of Seizures Today patient mentioned he has a history of Seizures and he do not remember the medication but he stopped taking after he lost his neurologist His lactic acid was elevated and we have given IV fluid bolus and increase ringer lactate 100 mL per Started levetiracetam 750 mg IV q.12h Follow up with EEG Chronic back pain Continue home medications Prostate cancer Follow up with outpatient oncologist BED BUGS infestation Benadryl 25mg po pnr Hydrocortsione 1% cream as needed Code status: DNR Diet: Regaular Diet DVT: SCDs Disposition: Patient will be monitored in ortho. Diego Dunaway PGY-1 Date of Service: Jun 24, 2025 Billing Provider: SHITAL KEANE MD, SATISH, RES Jun 24, 2025 22:29
[2025-06-25] VITALS (16 sets, daily range): BP systolic 105–150; BP diastolic 53–83; PULSE 66–105; RESP 11–20; TEMP 96.9–98.3; O2SAT 94–99
[2025-06-25 05:31] LABS: MEAN PLATELET VOLUME 8.5 FL (7.4-10.4); RED CELL DISTRIBUTION WIDTH 14.4 % (11.5-14.5)
[2025-06-25 05:42] LABS: CREATININE 0.91 MG/DL (0.60-1.10); TOTAL CARBON DIOXIDE 25.4 MMOL/L (24-32); eCRCL 67 ML/MIN; eGFR 82 ML/MIN
--- NOTE | 2025-06-25 09:25 | [facility] NEURO CONSULT REPORT ---
[facility] Procedure Note [facility] Procedure Note Consult [facility] EEG Note # Demographics Type of EEG Read: - Routine EEG - video Patient Location: Inpatient First Name: Justin Last Name: Efrain Date of : 1955 Age: 69 Gender: Male Facility: [facility] Time of Initial Page (): 06/25/2025 08:46 First Contact with Site (): 06/25/2025 09:16 # EEG Interpretation Start Time of EEG Read (): 06/25/2025 09:00 Stop Time of EEG Read (): 06/25/2025 09:20 Duration: 0h 20m Technical Details: - This study was recorded using the [employer] EEG software - The EEG electrodes were placed using the standard [employer] 10-20 system of electrode placement. Video and an accessory EKG lead were used during the course of this study. Indication: - syncope # Description Photic Stimulation: NOT Performed Hyperventilation: NOT performed Phases Captured: - awake Symmetry: symmetric Posterior Dominant Rhythm: - present, attenuates on eye opening 9 hertz Predominant Frequencies: - posterior dominant alpha (8-12 Hz) - continuous (>90%) Amplitude: normal Reactivity: yes Continuity: continuous EKG: NSR # Abnormalities Epileptiform Abnormalities: - NOT present Focal Slowing: no Seizure: - NOT present # Impression Impression: normal # Clinical Correlation Clinical Correlation: A normal EEG does not exclude nor support the diagnosis of epilepsy. # Demographics First Name: Justin Last Name: Efrain Facility: [facility] BOBBY MINOR MD Jun 25, 2025 09:25
--- NOTE | 2025-06-25 11:43 | PROGRESS NOTE- Residence ---
Progress Note - Resident Providers to CC Resident Creating Document: CRISTIANA TEJADA RES ~ Antibiotic Timeout Antibiotic Ordered?: Yes Subjective Patient was seen and examined at the bedside. Patient is asymptomatic, denies headache, nausea, vomiting or any neurological symptoms. He denies shortness or breath, the previously reported cough of greenish sputum is progressively improving. No other symptoms reported. Objective Vital Signs Date Time Temp Pulse Resp B/P (MAP) Pulse Ox O2 Delivery O2 Flow Rate FiO2 06/25/25 09:28 16 06/25/25 08:00 99 114/58 (76) 103 119/59 (79) 105 109/53 (71) 06/25/25 07:31 Room Air 0.0 06/25/25 07:25 96 21 06/25/25 06:00 97.5 Result Diagram: 06/25/2541906/25/25419 GENERAL: Awake, alert, oriented x4 HEENT : Normocephalic, atraumatic, pupils equal and reactive to light, extraocular movements intact, no scleral icterus or conjunctival pallor,, oral mucosa moist, NECK: neck is supple, trachea midline, no lymphadenopathy, no thyromegaly, no JV distention,lipoma present posterioraly near left scapula RESPIRATORY: Chest expansion equal bilaterally, bilateral decrease breath sounds , no wheezes, or rhonchi. No use of accessory muscles, no tenderness on palpation. CARDIOVASCULAR: S1 and S2 heard, no murmurs, no rubs, or gallops ABDOMEN: Soft, nontender, nondistended, bowel sounds present and normoactive. No organomegaly, no palpable mass, no rebound or guarding NEUROLOGICAL: Alert, oriented, normal memory, speech is normal Cranial nerves II-XII- intact Motor strength 5/5 Sensation-intact in all extremities Reflexes +2 and symmetrical Coordination is intact EXTREMITIES: No Edema, peripheral pulses felt, no deformities Psychiatric:Appropriate mood and affect,No hallucinations or suicidal ideation Coagulation Studies Laboratory Tests Test 06/24/25 15:14 D-Dimer 0.88 MG/L FEU (0-0.50) H D-Dimer Comment Plan Plan Assessment: A 69-year-old male with a medical history of COPD, BPH, and chronic back pain was admitted for evaluation of syncope and community-acquired pneumonia. 1. Syncope, most likely due to seizure: The patient reports a loss of consciousness and confusion for approximately 4 hours. He has a history of seizures, with his last episode occurring four months ago, and he is not currently on any antiseizure medication. The patient is hemodynamically stable. - Head CT: Negative for any acute abnormalities. - CT of chest, abdomen, and pelvis: No evidence of pulmonary embolus or mesenteric ischemia. - Carotid ultrasound: No evidence of hemodynamically significant carotid or internal carotid artery stenosis. - Orthostatic vitals: Normal. - Echocardiogram: Overall systolic function is hyperdynamic; left ventricular ejection fraction (LVEF) is 70-75%. - EEG: Normal; clinical correlation indicates that a normal EEG does not exclude or support a diagnosis of epilepsy. - Lactic acid levels: 5.8, then 5.0, 3.2, and 3.4. - Additional labs: Normal CPK, BNP, WBC, and procalcitonin. Plan: - Started on Keppra 750 mg twice daily. - Lactated Ringer's solution at 100 mL/hour. - Bolus of 1000 mL of Lactated Ringer's solution. - Anticipated discharge tomorrow. 2. Bilateral community-acquired pneumonia covering Gram-positive and Gram- negative organisms: The patient complains of shortness of breath accompanied by a productive cough with yellow-green sputum. He denies having a fever or chest pain, and troponin levels are negative. - Chest X-ray: Revealed perihilar and bibasilar airspace opacities, with prominent pulmonary vasculature. - Inflammatory markers: Negative. - Blood cultures: Negative; sputum culture pending. Plan: - IV fluids. - Ceftriaxone and azithromycin day 3 - Continue albuterol every 2 hours as needed and DuoNebs every 4 hours on schedule. - Continue Solumedrol 40 mg IV twice daily. Other comorbidities: - Chronic back pain: Continue home medications. - Prostate cancer: Follow up with outpatient oncologist. - Bed bug infestation: Administer Benadryl 25 mg orally as needed; apply hydrocortisone 1% cream as needed. Code status: DNR Diet: Regular Diet DVT: SCDs Disposition: Continue medical treatment. Anticipated discharge tomorrow. Resident attestation The above note has been reviewed and supervised by a senior resident PGY2/PGY3 Patient was seen, examined and discussed with the attending physician Date of Service: Jun 25, 2025 Billing Provider: SHITAL KEANE MD, LUCAS, RES Jun 25, 2025 11:43
--- NOTE | 2025-06-25 11:52 | VASCULAR REPORT ---
Bilateral lower extremity venous duplex Clinical History: edema Comparison: None Technique: Duplex Doppler evaluation of the deep venous systems of both lower extremities from the common femoral veins to the popliteal veins including color Doppler and spectral/pulsed waveform analysis was performed. Findings: Inunations Bilateral lower extremity pain/elevated D-dimer Vein Imaging (Right) CFV (R): Compressible, Spontaneous, Respirophasic, Augmentation Reflux: ms SFJ (R): Compressible, Spontaneous, Respirophasic, Augmentation Reflux: ms FEM (R): Compressible, Spontaneous, Respirophasic, Augmentation Reflux: ms POP (R): Compressible, Spontaneous, Respirophasic, Augmentation Reflux: ms DFV (R): Compressible, Spontaneous, Respirophasic, Augmentation Reflux: ms PTV (R): Compressible, Spontaneous, Respirophasic, Augmentation Reflux: ms GSV (R): Compressible, Spontaneous, Respirophasic, Augmentation Reflux: ms Peroneals (R): Compressible, Spontaneous, Respirophasic, Augmentation Reflux: ms Vein Imaging (Left) CFV (L): Compressible, Spontaneous, Respirophasic, Augmentation Reflux: ms SFJ (L): Compressible, Spontaneous, Respirophasic, Augmentation Reflux: ms FEM (L): Compressible, Spontaneous, Respirophasic, Augmentation Reflux: ms POP (L): Compressible, Spontaneous, Respirophasic, Augmentation Reflux: ms DFV (L): Compressible, Spontaneous, Respirophasic, Augmentation Reflux: ms PTV (L): Compressible, Spontaneous, Respirophasic, Augmentation Reflux: ms GSV (L): Compressible, Spontaneous, Respirophasic, Augmentation Reflux: ms Peroneals (L): Compressible, Spontaneous, Respirophasic, Augmentation Reflux: ms CONCLUSION No sonographic evidence for thrombus detected by image in the deep or superficial venous systems of bilateral lower extremities. All vessels interrogated were compressible and augment with distal compressions. Spontaneous, respirophasic flow is noted throughout bilateral lower extremities.
[2025-06-25] MEDS: ringers solution, lacted 1,000 ML IV ONE (11:55)
--- NOTE | 2025-06-25 18:19 | CARDIOLOGY REPORT ---
APPROVED REPORT EXAM: Comprehensive 2D, Doppler, and color-flow Echocardiogram. 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 4.02 cm FS (%) 44.2 % SV 62.2 ml CO 6.5 L/min M-Mode Dimensions Left Atrium(MM) 3.66 (2.5-4.0cm) Aortic Root 3.72 (2.2-3.7cm) Aortic Cusp Exc 1.99 (1.5-2.0cm) Aortic Valve AoV Peak Leeroy. 359.7 cm/s AoV VTI 59.9 cm AO Peak GR. 51.8 mmHg AO Mean GR. 25 mmHg LVOT VTI 29.44 cm LVOT Peak Leeroy. 170.7 cm/s ALBARO(VTI)/BSA 1.56 cm2/m2 ALBARO (VTI) 1.56 cm2 AV DI 0.49 % Mitral Valve MV E Velocity 92.3 cm/s MV Peak Gr. 3 mmHg MV DECEL TIME 142 ms MV A Velocity 103.1 cm/s MV PHT 64 ms E/A Ratio 0.9 MVA (PHT) 3.44 cm2 MV VMax 89.8 cm/s Tricuspid Valve TR P. Velocity 214 cm/s RAP ESTIMATE 10 mmHg TR Peak Gr. 18 mmHg RVSP 28 mmHg Pulmonary Vein S1 Velocity 115.4 cm/s D2 Velocity 81.8 cm/s PVa Velocity 9.6 cm/s LEFT VENTRICLE Normal LV size and wall thickness. Overall systolic function is hyperdynamic. LVEF is 70-75%. RIGHT VENTRICLE RV is normal size and function. ATRIA The left atrium size is normal. AORTIC VALVE Trileaflet AV appears moderately sclerotic with moderate stenosis. ALBARO: 1.56 cmsq; Pkv: 360 cm/sec; Gradients: 52/25 mmHG. Trace insufficiency. MITRAL VALVE MV appears structurally normal with trace regurgitation. TRICUSPID VALVE TV appears structurally normal with trace regurgitation. PULMONIC VALVE Normal PV without stenosis, physiologic insufficiency. GREAT VESSELS The aortic root is upper limit normal in size. PERICARDIUM Normal pericardium. No effusion. Other Information Study Quality: Adequate Conclusion Normal LV size and wall thickness. Overall systolic function is hyperdynamic. LVEF is 70-75%. RV is normal size and function. The left atrium size is normal. Trileaflet AV appears moderately sclerotic with moderate stenosis. ALBARO: 1.56 cmsq; Pkv: 360 cm/sec; Gradients: 52/25 mmHG. Trace insufficiency. MV appears structurally normal with trace regurgitation. TV appears structurally normal with trace regurgitation. Normal pericardium. No effusion.
[2025-06-26] VITALS (17 sets, daily range): BP systolic 108–141; BP diastolic 60–78; PULSE 61–107; RESP 16–18; TEMP 97.6–98.6; O2SAT 94–98
[2025-06-26 06:05] LABS: MEAN PLATELET VOLUME 8.0 FL (7.4-10.4); RED CELL DISTRIBUTION WIDTH 14.8 % (11.5-14.5)
[2025-06-26 06:31] LABS: CREATININE 0.94 MG/DL (0.60-1.10); TOTAL CARBON DIOXIDE 28.0 MMOL/L (24-32); eCRCL 65 ML/MIN; eGFR 79 ML/MIN
[2025-06-26] MEDS: pantoprazole 40mg Tablet.DR PO SCH (07:45)
[2025-06-26] MEDS: normal saline 1000ml 1,000 ML IV SCH (09:21)
--- NOTE | 2025-06-26 09:54 | CONSULTATION REPORT ---
History of Present Illness Providers to CC ~ Reason for Admit\\Admit Dx: syncope Refering MD: Lenin John Allergies: Coded Allergies: morphine (Verified Allergy, Unknown, "HIGH BLOOD PRESSUR, MIGRAINE" PER PT, 05/13/24) Home Medications Home Medications Active Ondansetron Odt (Ondansetron HCl) 4 Mg Tab.rapdis 1 Tablet PO Q8H PRN Compazine (Prochlorperazine Maleate) 10 Mg Tablet 1 Tab PO Q8H PRN Reported Proair Hfa (Albuterol Sulfate) 1 Puff Inh 2 Puffs INH Q6H PRN Omeprazole 20 Mg Capsule.dr 1 Cap PO DAILY Zanaflex (Tizanidine Hcl) 4 Mg Tablet 1 Tab PO TID PRN Flomax* (Tamsulosin HCl) 0.4 Mg Cap.sr.24h 2 Cap PO HS Pregabalin 100 Mg Capsule 1 Cap PO BID Oxycodone HCl ER (Oxycodone HCl) 20 Mg Tab.er.12h 1 Tab PO Q12H 30 Days Clonazepam 1 Mg Tablet 1 Tablet PO HS Past Family History Family History: Breast Ca FH: Alzheimer's disease FH: breast cancer Lyme Physical Exam Last Vital Signs Recorded: Temperature: 97.6, Source: Oral, Heart Rate: 67, Respiratory Rate: 16, BP: 129/78, Pulse Oximetry: 95, Weight: 63.000 Results Diagram Lab Result Diagram: 06/26/2545 06/26/25544 Assessment/Plan Additional Plan [facility] Neuro Note # Demographics Consult Type: General Neurology Patient Location: Inpatient First Name: Justin Last Name: Efrain Date of : 1955 Age: 69 Gender: Male Facility: [facility] Time of Initial Page (): 06/26/2025 09:40 First Contact with Site (): 06/26/2025 09:41 # HPI History: 69M with reported seizure history but not on anti-seizure medication. EEG reportedly without concerning abnormality. Started on keppra. Elevated lactic acid reported. Patient says he hit head on counter and lost awareness. Family reportedly called EMS and patient admitted to hospital. From patient perspective, he has episodes of light headedness and passing out, not definitely seizures. # Scores Time of exam and NIHSS (): 06/26/2025 09:46 Level of Consciousness 1a: [0] = Alert; keenly responsive LOC Questions 1b: [0] = Answers both questions correctly LOC Commands 1c: [0] = Performs both tasks correctly Best Gaze 2: [0] = Normal Visual 3: [0] = No visual loss Facial Palsy 4: [0] = Normal symmetrical movements Motor Arm Left 5a: [0] = No drift Motor Arm Right 5b: [0] = No drift Motor Leg Left 6a: [0] = No drift Motor Leg Right 6b: [0] = No drift Limb Ataxia 7: [0] = Absent Sensory 8: [0] = Normal Best Language 9: [0] = No aphasia Dysarthria 10: [0] = Normal Extinction and Inattention 11: [0] = No abnormality NIHSS Total: 0 # Data Other Labs: persistent elevation of lactic acid Head CT: - no bleed - per radiologist read # Assessment Impression: - Other Syncope versus seizures. By patient description, these may be orthostatic syncope. Patient is on tamsulosin, which can contribute to or cause orthostatic hypotension and syncope. # Plan Labs: - TSH - B12 Other: - If patient has any neurological deterioration please call me back immediately - neurology referral as outpatient - telemetry monitoring Additional Recommendations: Orthostatic BP measurement. D/c tamsulosin if possible. Since I am unable to verify any convincing history of epilepsy, I think ok to defer keppra for now pending outpatient neurology referral (patient says his outpatient neurologist ). I am unable to determine reason for persistent lactic acid elevation, not consistent with seizure induced since no seizure has been seen recently. # Logistics Attestation of consult completion: The patient is located at: [facility]. Facility staff participated in the visit. I performed this telemedicine visit from my offsite office utilizing interactive 2 way audio and visual telecommunication technology at the request of the onsite inpatient provider. Consent: Verbal consent was obtained from the patient and/or family for this encounter. Total time spent in telemedicine encounter: I spent 20 minutes reviewing clinical data and/or imaging, obtaining history, examining the patient, communicating with the onsite care team, and in preparation of this report. # Demographics First Name: Justin Last Name: Zuniga Facility: [facility] SUYAPA ANDERSON MD Jun 26, 2025 09:54
[2025-06-26] MEDS: normal saline 1000ml 1,000 ML IV ONE ×2 (11:22→12:35)
--- NOTE | 2025-06-26 14:23 | CONSULTATION REPORT ---
History of Present Illness Providers to CC ~ Reason for Admit\\Admit Dx: syncope Refering MD: Lenin John Allergies: Coded Allergies: morphine (Verified Allergy, Unknown, "HIGH BLOOD PRESSUR, MIGRAINE" PER PT, 05/13/24) Home Medications Home Medications Active Ondansetron Odt (Ondansetron HCl) 4 Mg Tab.rapdis 1 Tablet PO Q8H PRN Compazine (Prochlorperazine Maleate) 10 Mg Tablet 1 Tab PO Q8H PRN Reported Proair Hfa (Albuterol Sulfate) 1 Puff Inh 2 Puffs INH Q6H PRN Omeprazole 20 Mg Capsule.dr 1 Cap PO DAILY Zanaflex (Tizanidine Hcl) 4 Mg Tablet 1 Tab PO TID PRN Flomax* (Tamsulosin HCl) 0.4 Mg Cap.sr.24h 2 Cap PO HS Pregabalin 100 Mg Capsule 1 Cap PO BID Oxycodone HCl ER (Oxycodone HCl) 20 Mg Tab.er.12h 1 Tab PO Q12H 30 Days Clonazepam 1 Mg Tablet 1 Tablet PO HS Past Family History Family History: Breast Ca FH: Alzheimer's disease FH: breast cancer Lyme Physical Exam Last Vital Signs Recorded: Temperature: 98.0, Source: Oral, Heart Rate: 82, Respiratory Rate: 16, BP: 109/60, Pulse Oximetry: 95, Weight: 63.000 Results Diagram Lab Result Diagram: 06/26/2545 06/26/25544 Assessment/Plan [facility] Note # Demographics Consult Type: General Neurology Patient Location: Inpatient First Name: Nedra Last Name: Sergio Date of : 06/13/1970 Age: 55 Gender: Female Facility: [facility] Time of Initial Page ( Time): 06/26/2025 14:00 First Contact with Site ( Time): 06/26/2025 14:00 # HPI History: 55F admitted after found unresponsive, cardiac arrest. Currently intubated, has myoclonus. This is one day after. Currently on propofol 30 mcg/kg/min. # Exam Additional Neurologic Exam: Non coordinated myoclonic movements seen affecting all extremities and head/trunk. Does not appear to be epileptic seizure. Intubated, sedated, not able to participate with the examination. # Data Creatinine: within normal limits Head CT: - no bleed - per radiologist read # Assessment Impression: - Altered Mental Status abnormal movements following cardiac arrest. Most clinically consistent with post-anoxic myoclonus. # Plan Diagnostic Test: - EEG Other: - If patient has any neurological deterioration please call me back immediately - I have discussed my recommendations with the referring provider Additional Recommendations: Minimize sedation as possible to allow best neurologic assessment, favor with propofol or precedex for sedation if possible. Keppra reasonable to continue, up to 1500mg IV BID may suppress post-anoxic myoclonic movements. If EEG shows evidence of seizure, would consider increasing sedation with propofol, but seizure is less likely than post-anoxic myoclonus clinically, so would not increase sedation without concerning finding on EEG. Prognosis can be estimated at 72 hours post event, though remote neurologic assessment is not ideal for this purpose. MRI brain can be considered to aid with prognosis. Disposition: continue admission # Logistics Attestation of consult completion: The patient is located at: [facility]. Facility staff participated in the visit. I performed this telemedicine visit from my offsite office utilizing interactive 2 way audio and visual telecommunication technology at the request of the onsite inpatient provider. Consent: Verbal consent was obtained from the patient and/or family for this encounter. Total time spent in telemedicine encounter: I spent 20 minutes reviewing clinical data and/or imaging, obtaining history, examining the patient, communicating with the onsite care team, and in preparation of this report. # Demographics First Name: Nedra Last Name: Sergio Facility: [facility] SUYAPA ANDERSON MD Jun 26, 2025 14:23
[2025-06-26] MEDS ORDERED: LACT1CAP65 PO (14:35)
[2025-06-26] MEDS ORDERED: CEFD300C3 PO (14:35)
[2025-06-26] MEDS ORDERED: BUDE10.22 INH (14:39)
[2025-06-26] MEDS: ringers solution, lacted 1,000 ML IV SCH (16:37)
--- NOTE | 2025-06-26 19:52 | PROGRESS NOTE- Residence ---
Progress Note - Resident Providers to CC Resident Creating Document: VIKKI MACIAS RES ~ Antibiotic Timeout Antibiotic Ordered?: Yes Subjective Patient was seen and examined at the bedside. He states that his cough and shortness of breath have improved and has been active and states that he is ready to go home. He denies headache, confusion or any neurological symptoms. He denies other overnight symptoms. Objective Vital Signs Date Time Temp Pulse Resp B/P (MAP) Pulse Ox O2 Delivery O2 Flow Rate FiO2 06/26/25 18:30 71 06/26/25 18:00 98.6 16 133/70 (91) 97 Room Air 06/26/25 16:05 0.0 06/26/25 15:59 21 Result Diagram: 06/26/25 0545 06/26/25 0545 Awake , alert, and oriented x4, resting comfortably in the bed, in no acute distress HEENT: Atraumatic, normocephalic, EOMI, anicteric sclera ; pink conjunctiva, moist mucous membranes Neck: Trachea midline. Supple, full range of motion, no JVD, lipoma present posteriorly near left scapula Cardiac: Regular rhythm, regular rate with no murmurs all over the precordium. Respiratory: Mildly decreased breath sounds bilaterally, no tachypnea, no wheezing ,rub or rales, Chest wall is symmetric and without deformity. Gastrointestinal: Abdomen symmetric, non-distended, soft, non-tender, normal bowel sounds x4 quadrant, normoactive, no hepatosplenomegaly Musculoskeletal: No pedal edema, no cyanosis Neurological: Speech is clear, alert, and oriented x 4. No motor or sensory deficit, deep tendon reflexes normal, cerebellar intact. Cranial nerves II-XII intact. Skin: Warm and dry Coagulation Studies Laboratory Tests Test 06/24/25 15:14 D-Dimer 0.88 MG/L FEU (0-0.50) H D-Dimer Comment Assessment Assessment A 69-year-old male with a medical history of COPD, BPH, and chronic back pain was admitted for evaluation of syncope and community-acquired pneumonia. Plan Plan 1. Syncope, most likely due to seizure: The patient reports a loss of consciousness and confusion for approximately 4 hours. He has a history of seizures, with his last episode occurring four months ago, and he is not currently on any antiseizure medication. The patient is hemodynamically stable. - Head CT: Negative for any acute abnormalities. - CT of chest, abdomen, and pelvis: No evidence of pulmonary embolus or mesenteric ischemia. - Carotid ultrasound: No evidence of hemodynamically significant carotid or internal carotid artery stenosis. - Orthostatic vitals: Normal. - Echocardiogram: Overall systolic function is hyperdynamic; left ventricular ejection fraction (LVEF) is 70-75%. - EEG: Normal; clinical correlation indicates that a normal EEG does not exclude or support a diagnosis of epilepsy. - Lactic acid levels: 5.8, then 5.0, 3.2, and 3.4. - Additional labs: Normal CPK, BNP, WBC, and procalcitonin. Plan: - Started on Keppra 750 mg twice daily. - Lactated Ringer's solution at 100 mL/hour. - Bolus of 1000 mL of Lactated Ringer's solution. - Anticipated discharge tomorrow. 06/26/25 -Neurology was consulted and the follow up call was made to Dr. Satinder Kelly for clarification, and he recommended we can defer Keppra for now as he is unable to verify any convincing history of epilepsy, and to follow outpatient neurology -We will discontinue Keppra tomorrow prior to discharge 2. Bilateral community-acquired pneumonia covering Gram-positive and Gram- negative organisms: The patient complains of shortness of breath accompanied by a productive cough with yellow-green sputum. He denies having a fever or chest pain, and troponin levels are negative. - Chest X-ray: Revealed perihilar and bibasilar airspace opacities, with prominent pulmonary vasculature. - Inflammatory markers: Negative. - Blood cultures: Negative; sputum culture pending. Plan: - IV fluids. - Ceftriaxone and azithromycin day 3 - Continue albuterol every 2 hours as needed and DuoNebs every 4 hours on schedule. - Continue Solumedrol 40 mg IV twice daily. 06/26/25 Lactic acid is 3.3 in the a.m, patient was given NS boluses and lactic acid dropped down to 2.9 We will continue to monitor lactic acid WBC is normal Continue IV ceftriaxone and azithromycin - day 4 Started LR at 100 mL/hour Plan to follow up lactic acid tomorrow in a.m. and plan for discharge Other comorbidities: - Chronic back pain: Continue home medications. - Prostate cancer: Follow up with outpatient oncologist. - Bed bug infestation: Administer Benadryl 25 mg orally as needed; apply hydrocortisone 1% cream as needed. Code status: DNR Diet: Regular Diet DVT: SCDs Disposition: Continue medical treatment. Anticipated discharge tomorrow. Resident MD attestation The above note has been reviewed and supervised by a senior resident PGY2/PGY3 Patient was seen, examined and discussed with the attending physician Vikki Macias MD Internal Medicine resident, PGY-1 Date of Service: Jun 26, 2025 Billing Provider: SHITAL KEANE MD,VIKKI, RES Jun 26, 2025 19:52
[2025-06-27] VITALS (12 sets, daily range): BP systolic 119–145; BP diastolic 59–77; PULSE 65–86; RESP 16–20; TEMP 97.3–98.5; O2SAT 94–98
[2025-06-27 05:44] LABS: MEAN PLATELET VOLUME 8.4 FL (7.4-10.4); RED CELL DISTRIBUTION WIDTH 14.9 % (11.5-14.5)
[2025-06-27 05:58] LABS: CREATININE 1.07 MG/DL (0.60-1.10); TOTAL CARBON DIOXIDE 24.7 MMOL/L (24-32); eCRCL 57 ML/MIN; eGFR 68 ML/MIN
[2025-06-27] MEDS: normal saline 1000ml 1,000 ML IV ONE (10:31)
[2025-06-27] MEDS: PERFLUTREN PROTEIN-A MICROSPHR (Optison) 0.22 MG/ML 3ML VIAL IV ONE (13:36)
--- NOTE | 2025-06-27 17:38 | PROGRESS NOTE- Residence ---
Progress Note - Resident Providers to CC Resident Creating Document: VIKKI MACIAS RES ~ Antibiotic Timeout Antibiotic Ordered?: Yes Subjective Patient was seen and examined at the bedside. He states that his cough and shortness of breath have improved and has been active and states that he is ready to go home. He denies headache, confusion or any neurological symptoms. He denies other overnight symptoms. Objective Vital Signs Date Time Temp Pulse Resp B/P (MAP) Pulse Ox O2 Delivery O2 Flow Rate FiO2 06/27/25 15:24 72 18 Room Air 0.0 06/27/25 15:24 96 21 06/27/25 10:00 97.9 119/66 (83) Result Diagram: 06/27/25 0413 06/27/25 0413 Awake , alert, and oriented x4, resting comfortably in the bed, in no acute distress HEENT: Atraumatic, normocephalic, EOMI, anicteric sclera ; pink conjunctiva, moist mucous membranes Neck: Trachea midline. Supple, full range of motion, no JVD, lipoma present posteriorly near left scapula Cardiac: Regular rhythm, regular rate with no murmurs all over the precordium. Respiratory: Mildly decreased breath sounds bilaterally, bibasilar crackles heard, no tachypnea, no wheezing ,rub. Chest wall is symmetric and without deformity. Gastrointestinal: Abdomen symmetric, non-distended, soft, non-tender, normal bowel sounds x4 quadrant, normoactive, no hepatosplenomegaly Musculoskeletal: No pedal edema, no cyanosis Neurological: Speech is clear, alert, and oriented x 4. No motor or sensory deficit, deep tendon reflexes normal, cerebellar intact. Cranial nerves II-XII intact. Skin: Warm and dry Coagulation Studies Laboratory Tests Test 06/24/25 15:14 D-Dimer 0.88 MG/L FEU (0-0.50) H D-Dimer Comment Assessment Assessment A 69-year-old male with a medical history of COPD, BPH, and chronic back pain was admitted for evaluation of syncope and community-acquired pneumonia. Plan Plan 1. Syncope, most likely due to seizure: The patient reports a loss of consciousness and confusion for approximately 4 hours. He has a history of seizures, with his last episode occurring four months ago, and he is not currently on any antiseizure medication. The patient is hemodynamically stable. - Head CT: Negative for any acute abnormalities. - CT of chest, abdomen, and pelvis: No evidence of pulmonary embolus or mesenteric ischemia. - Carotid ultrasound: No evidence of hemodynamically significant carotid or internal carotid artery stenosis. - Orthostatic vitals: Normal. - Echocardiogram: Overall systolic function is hyperdynamic; left ventricular ejection fraction (LVEF) is 70-75%. - EEG: Normal; clinical correlation indicates that a normal EEG does not exclude or support a diagnosis of epilepsy. - Lactic acid levels: 5.8, then 5.0, 3.2, and 3.4. - Additional labs: Normal CPK, BNP, WBC, and procalcitonin. Plan: - Started on Keppra 750 mg twice daily. - Lactated Ringer's solution at 100 mL/hour. - Bolus of 1000 mL of Lactated Ringer's solution. - Anticipated discharge tomorrow. 06/26/25 On Keppra IV 750 mg twice daily -Neurology was consulted and the follow up call was made to Dr. Satinder Kelly for clarification, and he recommended we can defer Keppra for now as he is unable to verify any convincing history of epilepsy, and to follow outpatient neurology -We will discontinue Keppra tomorrow prior to discharge 06/27/25 On Keppra IV 750 mg twice daily We will discontinue Keppra prior to discharge and recommend neurology consultation outpatient 2. Bilateral community-acquired pneumonia covering Gram-positive and Gram- negative organisms: The patient complains of shortness of breath accompanied by a productive cough with yellow-green sputum. He denies having a fever or chest pain, and troponin levels are negative. - Chest X-ray: Revealed perihilar and bibasilar airspace opacities, with prominent pulmonary vasculature. - Inflammatory markers: Negative. - Blood cultures: Negative; sputum culture pending. Plan: - IV fluids. - Ceftriaxone and azithromycin day 3 - Continue albuterol every 2 hours as needed and DuoNebs every 4 hours on schedule. - Continue Solumedrol 40 mg IV twice daily. 06/26/25 Lactic acid is 3.3 in the a.m, patient was given NS boluses and lactic acid dropped down to 2.9 We will continue to monitor lactic acid WBC is normal Continue IV ceftriaxone and azithromycin - day 4 Started LR at 100 mL/hour Plan to follow up lactic acid tomorrow in a.m. and plan for discharge 06/27/25 Lactic acid went up to 4.8 in the a.m. and gradually decreased again, currently at 2.6 LR discontinued and started NS at 100 mL/hour IV ceftriaxone and azithromycin-day [address] ID[address] Segura was consulted and awaiting recommendations Other comorbidities: - Chronic back pain: Continue home medications. - Prostate cancer: Follow up with outpatient oncologist. - Bed bug infestation: Administer Benadryl 25 mg orally as needed; apply hydrocortisone 1% cream as needed. Code status: DNR Diet: Regular Diet DVT: SCDs Disposition: Continue medical treatment. Awaiting recommendations of Dr. Colton SINHA, Anticipated discharge tomorrow. Resident MD attestation The above note has been reviewed and supervised by a senior resident PGY2/PGY3 Patient was seen, examined and discussed with the attending physician Vikki Macias MD Internal Medicine resident, PGY-1 Date of Service: Jun 27, 2025 Billing Provider: SHITAL KEANE MD, PREETHI, RES Jun 27, 2025 17:38
[2025-06-28] VITALS (7 sets, daily range): BP systolic 143; BP diastolic 76; PULSE 54–75; RESP 15–20; TEMP 97.6; O2SAT 96–98
[2025-06-28 05:46] LABS: MEAN PLATELET VOLUME 8.0 FL (7.4-10.4); RED CELL DISTRIBUTION WIDTH 14.7 % (11.5-14.5)
[2025-06-28 06:13] LABS: CREATININE 0.72 MG/DL (0.60-1.10); TOTAL CARBON DIOXIDE 26.2 MMOL/L (24-32); eCRCL 85 ML/MIN; eGFR > 90 ML/MIN
--- NOTE | 2025-06-28 10:47 | DISCHARGE SUMMARY-Residence ---
Discharge Summary Providers to CC Resident Creating Document: VIKKI MACIAS, RES ~ Discharge Summary Admission Diagnosis: Syncope Hospital Course DATE OF ADMISSION: 06/23/25 DATE OF DISCHARGE: 06/28/25 Discharge Diagnosis\Comment: Community-acquired pneumonia Syncope 2/2 seizures and pneumonia History of prostate cancer Bedbug infestation Operations\Procedures: None Consultants: Neurology consult- Dr. Satinder Kelly Complications: None Condition on DC: Stable New Medications: Budesonide/Formoterol Fumarate (Symbicort 80-4.5 Mcg Inhaler) 80 Mcg-4.5 Mcg/Actuation Hfa.aer.ad 2 PUFFS INH Q12H for 30 Days, #3 GM 0 Refills Cefdinir* (Cefdinir*) 300 Mg Capsule 1 CAP PO Q12H for 5 Days, #10 CAP Lactobacillus Acidophilus (Probiotic) 10 Billion Cell Capsule 1 CAP PO BID for 30 Days, #30 CAP 0 Refills Continued Medications: Albuterol Sulfate (Proair Hfa) 1 Puff Inh 2 PUFFS INH Q6H PRN for wheezing, INHALER 0 Refills Clonazepam (Clonazepam) 1 Mg Tablet 1 TABLET PO HS, #30 TABLET Omeprazole (Omeprazole) 20 Mg Capsule.dr 1 CAP PO DAILY ONDANSETRON ODT 4mg tablet (Ondansetron Odt) 4 Mg Tab.rapdis 1 TABLET PO Q8H PRN for nausea/vomiting, #16 TABLET Oxycodone HCl (Oxycodone HCl ER) 20 Mg Tab.er.12h 1 TAB PO Q12H for 30 Days, #60 TAB Pregabalin (Pregabalin) 100 Mg Capsule 1 CAP PO BID Prochlorperazine Maleate (Compazine) 10 Mg Tablet 1 TAB PO Q8H PRN for HEADACHE OR NAUSEA, #15 TAB 0 Refills Tamsulosin Hcl* (Flomax*) 0.4 Mg Cap.sr.24h 2 CAP PO HS Tizanidine Hcl (Zanaflex) 4 Mg Tablet 1 TAB PO TID PRN for muscle spasm Discharge Summary: HPI as per admitting physician: A 69 year old male patient with pmh of CBP and prostate cancer presented to the ED with chief complains of loss of consciousness. Patient stated that prior to losing consciousness he had prodrome of ear fullness,nausea,vomiting,palpit ations,chills and sweating. As per the patient he lost consciousness for 2 hours and later he experienced confusion for 1 hour. In addition,he also had a fall and hit his head at the posterior skull base. He denies urine incontinence, tongue bite. Patient also has h/o chronic cough ass with green sputum,1/2 cup associated with intermitternt fevers. Hospital course: Vitals were normal, oxygen saturation was normal on room air. Chest x-ray showed perihilar and bibasilar airspace opacities and pulmonary vasculature was prominent with small left pleural effusion. He was started on IV ceftriaxone and azithromycin, Solu-Medrol and DuoNebs. He had bibasilar crackles on examination. BNP was normal and echo showed LVEF of 70-75%, trace mitral and tricuspid regurgitation. Syncope workup was done. Head CT showed no abnormality. Troponin and EKG was normal. Patient stated that he had history of epilepsy and was on medication but stopped it after he lost touch with his neurologist. EEG was done which did not support nor exclude the diagnosis of epilepsy. He was started on IV Keppra 750 mg b.i.d. Carotid ultrasound showed no evidence of hemodynamically significant CCA or ICA stenosis. Patient showed symptomatic improvement, his shortness of breath and cough improved but his lactic acid was fluctuating. It went up to 5.8 and gradually came down with NS. Neurology consultation recommended outpatient management of epilepsy and patient can be deferred off Keppra. He was also given Benadryl 25 mg p.o. and hydrocortisone 1% cream as needed for bad bedbug infestation. Patient did not experience further complications throughout the entire hospital stay. Patient was seen and examined on the day of discharge. All labs, diagnostic workups, discharge plan discussed with the patient in detail during visit before discharge. All questions and concerns answered to the best of my professional knowledge. Imaging: Chest x-ray- 06/23/25 The cardiac silhouette is unremarkable. The lungs demonstrate perihilar and bibasilar airspace opacities. The pulmonary vasculature is prominent. Small left pleural effusion. There is no pneumothorax. Head CT-06/23/25 No evidence of acute intracranial abnormality. Echocardiogram-06/24/25 Normal LV size and wall thickness. Overall systolic function is hyperdynamic. LVEF is 70-75%. RV is normal size and function. The left atrium size is normal. Trileaflet AV appears moderately sclerotic with moderate stenosis. ALBARO: 1.56 cmsq; Pkv: 360 cm/sec; Gradients: 52/25 mmHG. Trace insufficiency. MV appears structurally normal with trace regurgitation. TV appears structurally normal with trace regurgitation. Normal pericardium. No effusion. Chest/abdomen/pelvis CTA- 06/24/25 1. No evidence of pulmonary embolism. 2. No evidence of acute mesenteric ischemia. 3. No acute findings identified. Carotid artery US-06/24/25 No without evidence of hemodynamically significant CCA or ICA stenosis. Vascular US - 06/25/25 No sonographic evidence for thrombus detected by image in the deep or superficial venous systems of bilateral lower extremities. All vessels interrogated were compressible and augment with distal compressions. Spontaneous, respirophasic flow is noted throughout bilateral lower extremities. Vital Signs Date Time Temp Pulse Resp B/P (MAP) Pulse Ox O2 Delivery O2 Flow Rate FiO2 06/28/25 09:09 18 96 Room Air 06/28/25 07:25 68 0.0 06/28/25 07:21 21 06/28/25 06:00 97.6 143/76 (98) Laboratory Tests Test 06/26/25 14:08 06/26/25 16:06 06/27/25 04:13 06/27/25 07:03 Lactic Acid Level 2.9 MMOL/L 2.4 MMOL/L 4.8 MMOL/L 3.1 MMOL/L White Blood Count 8.6 X10'3 Red Blood Count 3.73 X10'6 Hemoglobin 11.3 g/dl Hematocrit 32.9 % Mean Corpuscular Volume 88.2 FL Mean Corpuscular Hemoglobin 30.3 PG Mean Corpuscular Hemoglobin Concent 34.4 g/dL Red Cell Distribution Width 14.9 % Platelet Count 236 X10'3 Mean Platelet Volume 8.4 FL Neutrophils (%) (Auto) 91.8 % Lymphocytes (%) (Auto) 5.4 % Monocytes (%) (Auto) 2.7 % Eosinophils (%) (Auto) 0 % Basophils (%) (Auto) 0.1 % Neutrophils # (Auto) 7.9 X10'3 Lymphocytes # (Auto) 0.5 X10'3 Monocytes # (Auto) 0.2 X10'3 Eosinophils # (Auto) 0.0 X10'3 Basophils # (Auto) 0.0 X10'3 CBC Comment Sodium Level 142 MMOL/L Potassium Level 4.0 MMOL/L Chloride Level 107 MMOL/L Carbon Dioxide Level 24.7 MMOL/L Anion Gap 10 Blood Urea Nitrogen 14 MG/DL Creatinine 1.07 MG/DL Estimated GFR/1.73 m2 68 ML/MIN BUN/Creatinine Ratio 13.1 Glucose Level 129 MG/DL Calcium Level 8.4 MG/DL Magnesium Level 1.7 MG/DL Total Bilirubin 0.4 MG/DL Aspartate Amino Transf (AST/SGOT) 12 U/L Alanine Aminotransferase (ALT/SGPT) 22 U/L Alkaline Phosphatase 66 IU/L Total Protein 6.2 G/DL Albumin 3.0 G/DL Globulin 3.2 G/DL Albumin/Globulin Ratio 0.9 Chemistry Comments Test 06/27/25 12:39 06/27/25 14:29 06/27/25 19:01 06/28/25 00:30 Lactic Acid Level 3.4 MMOL/L 2.6 MMOL/L 2.6 MMOL/L 1.9 MMOL/L Test 06/28/25 04:32 White Blood Count 8.1 X10'3 Red Blood Count 3.56 X10'6 Hemoglobin 10.6 g/dl Hematocrit 31.5 % Mean Corpuscular Volume 88.7 FL Mean Corpuscular Hemoglobin 29.9 PG Mean Corpuscular Hemoglobin Concent 33.7 g/dL Red Cell Distribution Width 14.7 % Platelet Count 202 X10'3 Mean Platelet Volume 8.0 FL Neutrophils (%) (Auto) 69.5 % Lymphocytes (%) (Auto) 23.7 % Monocytes (%) (Auto) 6.2 % Eosinophils (%) (Auto) 0.5 % Basophils (%) (Auto) 0.1 % Neutrophils # (Auto) 5.7 X10'3 Lymphocytes # (Auto) 1.9 X10'3 Monocytes # (Auto) 0.5 X10'3 Eosinophils # (Auto) 0.0 X10'3 Basophils # (Auto) 0.0 X10'3 CBC Comment Sodium Level 143 MMOL/L Potassium Level 3.7 MMOL/L Chloride Level 109 MMOL/L Carbon Dioxide Level 26.2 MMOL/L Anion Gap 8 Blood Urea Nitrogen 14 MG/DL Creatinine 0.72 MG/DL Estimated GFR/1.73 m2 > 90 ML/MIN BUN/Creatinine Ratio 19.4 Glucose Level 74 MG/DL Lactic Acid Level 1.3 MMOL/L Calcium Level 7.9 MG/DL Total Bilirubin 0.3 MG/DL Aspartate Amino Transf (AST/SGOT) 14 U/L Alanine Aminotransferase (ALT/SGPT) 22 U/L Alkaline Phosphatase 59 IU/L Total Protein 5.6 G/DL Albumin 2.7 G/DL Globulin 2.9 G/DL Albumin/Globulin Ratio 0.9 Chemistry Comments Examination at discharge: Awake , alert, and oriented x4, resting comfortably in the bed, in no acute distress HEENT: Atraumatic, normocephalic, EOMI, anicteric sclera ; pink conjunctiva, mo ist mucous membranes Neck: Trachea midline. Supple, full range of motion, no JVD, lipoma present posteriorly near left scapula Cardiac: Regular rhythm, regular rate with no murmurs all over the precordium. Respiratory: Mildly decreased breath sounds bilaterally, mild bibasilar crackles heard, no tachypnea, no wheezing ,rub. Chest wall is symmetric and without deformity. Gastrointestinal: Abdomen symmetric, non-distended, soft, non-tender, normal bowel sounds x4 quadrant, normoactive, no hepatosplenomegaly Musculoskeletal: No pedal edema, no cyanosis Neurological: Speech is clear, alert, and oriented x 4. No motor or sensory deficit, deep tendon reflexes normal, cerebellar intact. Cranial nerves II-XII intact. Skin: Warm and dry Advice at discharge: Follow up with PCP in 1-2 weeks Follow up with Neurology for management of epilepsy Follow up with TSH and vitamin B12 with PCP Continue antibiotic - cefdinir 300 mg b.i.d. for 5 days Please use Symbicort inhaler 1 puff twice daily Please use albuterol 2.5 mg DuoNeb whenever necessary for shortness of breath Call 911 or come to the ER for any episodes of seizure, fall, shortness of breath, fever, chills etc. *Problems/Diagnosis: (1) Epilepsy (2) Community acquired pneumonia (3) History of prostate cancer Total Time Spent on D/C: > 30 Minutes Date of Service: Jun 28, 2025 Billing Provider: SHITAL KEANE MD, PREETHI, RES Jun 28, 2025 10:47
== END 2025-06-28 12:45 | disposition home or self-care (01) | DRG 100 ==
LOC: ER 15:34 → ED HOLD 17:42 → ORTHO 4S 20:01
PROVIDERS: ADMIT Family Medicine; ATTEND Family Medicine
PROC: B4201ZZ Computerized Tomography (CT Scan) of Abdominal Aorta using Low Osmolar Contrast (ICD-10-PCS; principal; 2025-06-24)
PROC: B4241ZZ Computerized Tomography (CT Scan) of Superior Mesenteric Artery using Low Osmolar Contrast (ICD-10-PCS; 2025-06-24)
PROC: B4281ZZ Computerized Tomography (CT Scan) of Bilateral Renal Arteries using Low Osmolar Contrast (ICD-10-PCS; 2025-06-24)
PROC: B42C1ZZ Computerized Tomography (CT Scan) of Pelvic Arteries using Low Osmolar Contrast (ICD-10-PCS; 2025-06-24)
PROC: B42H1ZZ Computerized Tomography (CT Scan) of Bilateral Lower Extremity Arteries using Low Osmolar Contrast (ICD-10-PCS; 2025-06-24)
PROC: B4211ZZ Computerized Tomography (CT Scan) of Celiac Artery using Low Osmolar Contrast (ICD-10-PCS; 2025-06-24)
PROC: 4A00X4Z Measurement of Central Nervous Electrical Activity, External Approach (ICD-10-PCS; 2025-06-25)
DX: R56.9 Unspecified convulsions (principal); J18.9 Pneumonia, unspecified organism; J44.0 Chronic obstructive pulmonary disease with (acute) lower respiratory infection; N40.0 Benign prostatic hyperplasia without lower urinary tract symptoms; G25.3 Myoclonus; Z66 Do not resuscitate; F41.9 Anxiety disorder, unspecified; C61 Malignant neoplasm of prostate; G89.29 Other chronic pain; M54.9 Dorsalgia, unspecified; K21.9 Gastro-esophageal reflux disease without esophagitis; Z88.5 Allergy status to narcotic agent; Z79.899 Other long term (current) drug therapy; B88.8 Other specified infestations
CPT/HCPCS: 36415; 70450; 71045; 71275; 74174; 80048; 80053; 80177; 80305; 80320; 81001; 82550; 83605; 83735; 83880; 84145; 84484; 85025; 85379; 87040; 87081; 93005; 93306; 93880; 93970; 94640; 94760; 95816; 97116; 97161; 99285; A4615; G0378; J0456; J0696; J1953; J2405; J2919; J7030; J7040; J7120; Q9967